=== PATIENT | male | born 1945 | race Caucasian/White ===

== ENCOUNTER 2017-01-13 15:23 | Inpatient (IN) | payer MEDICARE, MEDICAID ==
[~2017-01-13] VITALS: Ht 167.6 cm; Wt 86.2 kg
--- NOTE | 2017-01-13 15:35 | NUR ---
AAOX3, BIBRA FROM HOME C/O RIGHT GREAT TOE GANGRENE X 3 MONTHS. RESP IS EVEN AND UNLABORED WITH NAD NOTED. SKIN IS WARM AND DRY. AWAITING MD FOR EVAL.
--- NOTE | 2017-01-13 15:49 | NUR ---
CALLED NURSING SUP. FOR MS BED
[2017-01-13 16:07] LABS: BASOPHILS # (AUTO) 0.2 /CMM (0.0-0.2); EOSINOPHILS # (AUTO) 0.2 /CMM (0.0-0.7); HEMATOCRIT 41 % (39-51); HEMOGLOBIN 13.4 g/dL (13.5-17.5); LYMPHOCYTES # (AUTO) 1.9 /CMM (0.8-4.8); LYMPHOCYTES % (AUTO) 11.4 % (20.0-44.0); MEAN CORPUSCULAR HEMOGLOBIN 29 PG (26.0-33.0); MEAN CORPUSCULAR HGB CONC 33 g/dl (31.0-36.0); MEAN CORPUSCULAR VOLUME 88 fL (80-96); MONOCYTES # (AUTO) 1.1 /CMM (0.1-1.30); MONOCYTES % (AUTO) 6.5 % (2.0-12.0); NEUTROPHILS # (AUTO) 13.7 /CMM (1.8-8.9); NEUTROPHILS % (AUTO) 80.1 % (43.0-81.0); PLATELET COUNT (AUTO) 400 /CMM (150-450); RDW COEFFICIENT OF VARIATION 13.7 (11.5-15.0); RED BLOOD CELL COUNT(AUTO) 4.62 MIL/uL (4.5-6.0); WHITE BLOOD COUNT (AUTO) 17.1 K/uL (4.3-11.0)
[2017-01-13] MEDS ORDERED: ACETAMINOPHEN 325 MG TABLET ONE (16:16)
[2017-01-13 16:28] LABS: ALANINE AMINOTRANSFERASE 16 U/L (12-78); ALBUMIN 3.4 g/dL (3.4-5.0); ALKALINE PHOSPHATASE 86 U/L (46-116); ASPARTATE AMINOTRANSFERASE 20 U/L (15-37); BILIRUBIN,DIRECT 0.1 mg/dL (0.0-0.2); BILIRUBIN,TOTAL 0.6 mg/dL (0.2-1.0); CARBON DIOXIDE 22 mmol/L (21-32); CHLORIDE 105 mmol/L (98-107); CREATININE 1.7 mg/dL (0.6-1.3); GLUCOSE 111 mg/dL (74-106); POTASSIUM 3.8 mmol/L (3.5-5.1); SODIUM SERUM 140 mmol/L (136-145); TOTAL PROTEIN, SERUM 7.9 g/dL (6.4-8.2); UREA NITROGEN, BLOOD 49 mg/dL (7-18)
[2017-01-13] MEDS ORDERED: ACETAMINOPHEN 325 MG TABLET PO ONE (16:30)
[2017-01-13 16:32] LABS: INR 0.97 (0.87-1.13); PROTHROMBIN TIME 10.1 SECS (9.5-12.7)
--- NOTE | 2017-01-13 16:59 | NUR ---
[facility] PAGED, DR. XAVIER PAREDES PROFESSIONAL HOUSING CONSULTANT
[2017-01-13] MEDS ORDERED: VANCOMYCIN 1 GM in IV D5W 250 ML IV ONE (17:00)
--- NOTE | 2017-01-13 17:00 | NUR ---
MS 304-2
--- NOTE | 2017-01-13 17:10 | NUR ---
CALLED PHARMACY FOR ADDIS
[2017-01-13] MEDS: PIPERACILLIN /TAZOBACTAM 3.375 G in IV D5W 50 ML IV ONE ×2 (17:15→17:30)
[2017-01-13] MEDS ORDERED: ASPI1TAB PO (17:20)
[2017-01-13] MEDS ORDERED: IV SET PRIMARY PUMP SET 1 EA INFUS.SET MC ONE ×2 (17:20→22:58)
[2017-01-13] MEDS ORDERED: IV NS 0.9% 1,000 ML IV PRN (17:41)
--- NOTE | 2017-01-13 17:48 | NUR ---
REPORT GIVEN TO SKYLER MILLS FOR [facility] MS 304-2
[2017-01-13] MEDS ORDERED: ACETAMINOPHEN 325 MG TABLET PO PRN (18:00)
[2017-01-13] MEDS ORDERED: HYDROCODONE/APAP 5/325MG 1 EACH TABLET PO PRN (18:00)
[2017-01-13] MEDS ORDERED: ONDANSETRON HCL/PF 4 MG/2 ML VIAL IVP PRN (18:00)
[2017-01-13] MEDS ORDERED: MAG HYDROX/AL HYDROX/SIMETH 30 ML UDC PO PRN (18:00)
[2017-01-13] MEDS ORDERED: ZOLPIDEM TARTRATE 5 MG TABLET PO PRN (18:00)
[2017-01-13] MEDS ORDERED: Z GUARD REMEDY 2 OZ OINT TP PRN (18:00)
[2017-01-13] MEDS ORDERED: MORPHINE SULFATE INJ 2 MG/ML DISP.SYRIN IV PRN (18:00)
[2017-01-13] MEDS ORDERED: VANCOMYCIN 1 GM in IV D5W 250 ML IV SCH (18:00)
[2017-01-13] MEDS ORDERED: MAGNESIUM HYDROXIDE 30 ML UDC PO PRN (18:00)
[2017-01-13] MEDS ORDERED: FEE PK DOSING 1 MIN EA MC ONE (18:03)
--- NOTE | 2017-01-13 18:15 | NUR ---
PATIENT TRANSPORTED TO [place] VIA WHEELCHAIR. PATIENT REMAINS IN STABLE CONDITION AT THIS TIME.
[2017-01-13 18:22] VITALS: BP 97/52
--- NOTE | 2017-01-13 19:02 | NUR ---
patient from Er by 6:20pm .patient in stable condition.no respiratory distress noted.no pain nor discomfort noted from patient,vital signs taken and patient is resting comfortably .
[2017-01-13 20:00] VITALS: BP 98/49
[2017-01-13] MEDS ORDERED: IV NS 0.9% 250 ML IV ONE (22:58)
[2017-01-13] MEDS ORDERED: SECONDARY IV SET 1 EA INFUS.SET MC ONE (22:58)
[2017-01-13] MEDS: PIPERACILLIN /TAZOBACTAM 2.25 G in IV D5W 50 ML IV SCH (23:09)
[2017-01-14 04:00] VITALS: BP 106/60
[2017-01-14] MEDS: PIPERACILLIN /TAZOBACTAM 2.25 G in IV D5W 50 ML IV SCH ×2 (05:40→12:02)
[2017-01-14] MEDS ORDERED: SECONDARY IV SET 1 EA INFUS.SET MC ONE ×2 (05:52→09:47)
[2017-01-14] MEDS ORDERED: VANCOMYCIN 500 MG in IV D5W 100ml IV SCH (06:00)
[2017-01-14] MEDS ORDERED: VANCOMYCIN 0.5 GM in IV D5W 250 ML IV SCH (06:00)
--- NOTE | 2017-01-14 06:31 | NUR ---
MS RN NOTES AWAKE & RESPONSIVE. NOT IN ANY DISTRESS. NO SOB NOTED. DENIES ANY PAIN OR DISCOMFORT AT THIS TIME. WITH IV-HL PATENT & INTACT. MONITORED ACCORDINGLY. CALL LIGHT WITHIN REACH. BED IN LOWEST POSITION. SR UP X 2 FOR SAFETY. WILL ENDORSE TO NEXT SHIFT.
[2017-01-14 06:35] LABS: BASOPHILS % (AUTO) 0.3 % (0.0-2.0); EOSINOPHILS # (AUTO) 0.4 /CMM (0.0-0.7); EOSINOPHILS % (AUTO) 2.6 % (0.0-6.0); HEMATOCRIT 40 % (39-51); HEMOGLOBIN 13.3 g/dL (13.5-17.5); LYMPHOCYTES # (AUTO) 2.4 /CMM (0.8-4.8); LYMPHOCYTES % (AUTO) 17.3 % (20.0-44.0); MEAN CORPUSCULAR HEMOGLOBIN 30 PG (26.0-33.0); MEAN CORPUSCULAR HGB CONC 33 g/dl (31.0-36.0); MEAN CORPUSCULAR VOLUME 89 fL (80-96); MONOCYTES % (AUTO) 7.1 % (2.0-12.0); NEUTROPHILS % (AUTO) 72.7 % (43.0-81.0); PLATELET COUNT (AUTO) 364 /CMM (150-450); RDW COEFFICIENT OF VARIATION 14.5 (11.5-15.0); RED BLOOD CELL COUNT(AUTO) 4.49 MIL/uL (4.5-6.0); WHITE BLOOD COUNT (AUTO) 13.8 K/uL (4.3-11.0)
[2017-01-14 06:47] LABS: ALANINE AMINOTRANSFERASE 20 U/L (12-78); ALBUMIN 3.2 g/dL (3.4-5.0); ALKALINE PHOSPHATASE 88 U/L (46-116); ASPARTATE AMINOTRANSFERASE 20 U/L (15-37); BILIRUBIN,TOTAL 0.8 mg/dL (0.2-1.0); CALCIUM, SERUM 9.1 mg/dL (8.5-10.1); CARBON DIOXIDE 25 mmol/L (21-32); CHLORIDE 104 mmol/L (98-107); CREATININE 1.4 mg/dL (0.6-1.3); GLUCOSE 111 mg/dL (74-106); MAGNESIUM 1.7 mg/dL (1.8-2.4); PHOSPHORUS 3.2 mg/dL (2.5-4.9); POTASSIUM 3.7 mmol/L (3.5-5.1); SODIUM SERUM 140 mmol/L (136-145); TOTAL PROTEIN, SERUM 7.8 g/dL (6.4-8.2); UREA NITROGEN, BLOOD 39 mg/dL (7-18)
--- NOTE | 2017-01-14 07:25 | NUR ---
MS RN OPENING NOTES RECEIVED PATIENT IN BED AWAKE, ALERT AND ORIENTED X4, NO C/O PAIN OR DISCOMFORTS AT THIS TIME. ON ROOM AIR, BREATHING EVEN WITH NO SOB. IV ACCESS ON RAC G#18 INTACT AND PATENT. CALL LIGHT WITHIN REACH. BED IN LOWEST POSITION AND LOCKED WITH SR UP X 2. ALL SAFETY PRECAUTIONS MAINTAINED. WILL CONTINUE TO MONITOR ACCORDINGLY.
[2017-01-14] MEDS ORDERED: PANTOPRAZOLE 40 MG TABLET.DR PO SCH (07:30)
[2017-01-14] MEDS ORDERED: IV SET PRIMARY PUMP SET 1 EA INFUS.SET MC ONE (07:47)
[2017-01-14 08:00] VITALS: BP 132/76
[2017-01-14 09:34] LABS: THYROID STIMULATING HORMONE 0.579 uIU/mL (0.358-3.74)
[2017-01-14] MEDS: Magnesium 1GM/D5W 100ML PREMIX 100 ML IV SCH ×2 (09:48→11:04)
[2017-01-14] MEDS ORDERED: DEXTROSE 50%-WATER 50 ML DISP.SYRIN IV PRN (10:00)
[2017-01-14] MEDS ORDERED: *INSULIN REGULAR(HUMULIN R)HUM 100 UNIT/ML VIAL SQ PRN (10:00)
[2017-01-14] MEDS ORDERED: INSULIN REGULAR, HUMAN 100 UNIT/ML 3 ML VIAL SQ PRN (10:00)
--- NOTE | 2017-01-14 10:07 | NUR ---
RN NOTES PATIENT HOME HEALTH NURSE SARAN VALENCIA FROM [facility] CALLED INFORMED DAVID PT IS GETTING LANTUS 15U IN THE MORNING AND BYDUREON 2MG INJ EVERY WEDNESDAY. MADE AWARE AND ORDERS CARRIED OUT.
--- NOTE | 2017-01-14 10:40 | NUR ---
WOUND CARE CONSULT WOUND CARE RECEIVED WOUND CONSULT FOR PATIENT. WOUND CARE WILL DEFER EVAL AND TREATMENT TO PODIATRY AT THIS TIME WITH WOUND CARE ASSIST IF REQUESTED. PATIENT WITH OPAL AT 19, INDEPENDENT WITH BED MOBILITY AND AMBULATORY. DISCUSSED WITH NURSING STAFF.
[2017-01-14] MEDS ORDERED: BLOOD SUGAR DIAGNOSTIC 1 EACH STRIP VI SCH (12:00)
--- NOTE | 2017-01-14 12:03 | NUR ---
RN NOTES DR ALEXANDER CAME, SEEN AND EVALUATED PT'S LOWER EXTREMITIES AND FEET.
--- NOTE | 2017-01-14 13:37 | NUR ---
RN DISCHARGED NOTES PATIENT DISCHARGE HOME AGAINST MEDICAL ADVICE. AMA FORM SIGNED BY PATIENT AND FILED ON CHART. INCIDENT REPORT DONE. PATIENT LEFT UNIT AMBULATORY WITH WALKER ACCOMPANIED BY NURSE TO LOBBY WITH SON WAITING TO TAKE HIM HOME. HE LEFT UNIT AT 1510H ALERT AND ORIENTED X4, NO COMPLAINTS OF PAIN AT TIME OF DISCHARGE. VITAL SIGNS TAKEN AND RECORDED. BELONGINGS CHECKED, COUNTED AND SIGNED FORM. PNEUMO VACCINE GIVEN. PHOTO OF RIGHT GREAT TOE TAKEN ON ADMISSION LAST NIGHT AND FILED ON CHART. HEALTH TEACHINGS GIVEN TO PATIENT AND VERBALIZED UNDERSTANDING. MD AND CHARGE NURSE AWARE OF DISCHARGE.
[2017-01-14] MEDS ORDERED: PNEUMOCOCCAL 23-VAL P-SAC VAC 0.5 ML VIAL SQ ONE (14:30)
[2017-01-14] MEDS ORDERED: LACTOBACILLUS RHAMNOSUS GG 1 EACH CAP.SPRINK PO SCH (17:00)
[2017-01-14] MEDS ORDERED: VANCOMYCIN 0.75 GM in IV D5W 250 ML IV SCH (18:00)
[2017-01-15] MEDS ORDERED: INSULIN DETEMIR 100 UNIT/ML CARTRIDGE SQ SCH (09:00)
[2017-01-15 14:17] LABS: *SPE ALBUMIN 3.5 g/dL (2.9-4.4); *SPE ALPHA-1-GLOBULIN 0.3 g/dL (0.0-0.4); *SPE ALPHA-2-GLOBULIN 1.2 g/dL (0.4-1.0); *SPE BETA GLOBULIN 1.1 g/dL (0.7-1.3); *SPE GLOBULIN, TOTAL 3.4 g/dL (2.2-3.9); *SPE M-SPIKE Not Observed g/dL (Not Observed); *SPE PROTEIN TOTAL 6.9 g/dL (6.0-8.5); *SPEGAMMA GLOBULIN 0.8 g/dL (0.4-1.8)
[2017-01-19] MEDS ORDERED: BYDUREON 2 MG SQ SCH (09:00)
== END 2017-01-14 15:40 | disposition left against medical advice (07) | DRG 602 ==
LOC: ER 15:26 → MED 17:29
PROVIDERS: ADMIT Family Medicine; ATTEND Family Medicine
DX: L03.115 Cellulitis of right lower limb (principal); N17.0 Acute kidney failure with tubular necrosis; E11.52 Type 2 diabetes mellitus with diabetic peripheral angiopathy with gangrene; I70.261 Atherosclerosis of native arteries of extremities with gangrene, right leg; E11.22 Type 2 diabetes mellitus with diabetic chronic kidney disease; I12.9 Hypertensive chronic kidney disease with stage 1 through stage 4 chronic kidney disease, or unspecified chronic kidney disease; E66.9 Obesity, unspecified; Z68.30 Body mass index [BMI] 30.0-30.9, adult; D72.829 Elevated white blood cell count, unspecified; Z79.4 Long term (current) use of insulin; E83.42 Hypomagnesemia; N18.3 Chronic kidney disease, stage 3 (moderate)
CPT/HCPCS: 36415; 73630-TC; 80048-TC; 80053-TC; 80061-TC; 80076-TC; 82962-TC; 83605-TC; 83735-TC; 84100-TC; 84155; 84165; 84439-TC; 84443-TC; 85025-TC; 85652-TC; 85730-TC; 86140-TC; 87040-TC; 87081-TC; 90732; 93307-TC; 93925-TC; A4606; J1815; J2543; J3370; J3475; J7030; J7050; J7060; Z7610

== ENCOUNTER 2017-11-18 15:17 | Emergency (ER) | payer MEDICARE, OTHER ==
[~2017-11-18] VITALS: Ht 165.1 cm; Wt 83.9 kg
[2017-11-18 15:30] VITALS: BP 147/76
[2017-11-18] MEDS ORDERED: FAMOTIDINE (20 MG) 20 MG TABLET ONE (16:27)
[2017-11-18] MEDS ORDERED: DEXAMETHASONE SOD PHOSPHATE 10 MG/ML VIAL ONE (16:27)
[2017-11-18] MEDS: DEXAMETHASONE SOD PHOSPHATE 4 MG/ML VIAL IM ONE (16:33)
[2017-11-18] MEDS: FAMOTIDINE (20 MG) 20 MG TABLET PO ONE (16:33)
--- NOTE | 2017-11-18 17:25 | NUR ---
CALLED [facility] AND SPOKE WITH DISPATCHER CELIA TO ARRANGE A BLS TRANSPORT TO THE PTS RESIDENCE. WAS GIVEN A 1930 BRANCH CREDIT COUNSELOR TIME. TRIP #:[id number]
--- NOTE | 2017-11-18 19:35 | NUR ---
REPORT GIVEN TO EMT FOR CATERINA. PT VSS. PT AWARE OF TRANSFER BACK TO HOME. PT WITH ALL BELONGINGS. PT TO BE TRANSFERRED BACK HOME VIA GURNEY. PER AMBULJALIL TOOK OVER CARE.
== END 2017-11-18 16:56 | disposition home or self-care (01) ==
LOC: ER 15:20
DX: L30.9 Dermatitis, unspecified (principal); E11.9 Type 2 diabetes mellitus without complications; I10 Essential (primary) hypertension
CPT/HCPCS: 82962-TC; A4606; J1100; Z7610

== ENCOUNTER 2021-06-17 02:57 | Inpatient (IN) | payer MEDICARE, OTHER ==
[~2021-06-17] VITALS: Ht 182.9 cm; Wt 112.0 kg
[2021-06-17] VITALS (16 sets, daily range): BP systolic 78–139; BP diastolic 34–99
--- NOTE | 2021-06-17 03:11 | NUR ---
BIBRA FOR C/O SOB. PT ARRIVED ON CPAP SATTING 98-99%. A, OX4 AND RESPONSIVE ON TRIAGE. REPORTED HX OF DM, AND HTN. 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 PT WAS PLACED IN BED 8, ON MONITOR. , RN AND RT T BED SIDE. WILL CONT TO MONITOR
--- NOTE | 2021-06-17 03:15 | NUR ---
RT notes Pt placed on BIPAP on settings IPAP 15, EPAP 5, RR 16, FIO2 30% per MD order. Will cont to monitor.
[2021-06-17 03:22] LABS: BASOPHILS # (AUTO) 0.1 K/uL (0.0-0.2); BASOPHILS % (AUTO) 0.9 % (0.0-2.0); EOSINOPHILS % (AUTO) 1.9 % (0.0-6.0); HEMATOCRIT 36 % (39-51); HEMOGLOBIN 11.2 g/dL (13.5-17.5); LYMPHOCYTES # (AUTO) 2.3 K/uL (0.8-4.8); LYMPHOCYTES % (AUTO) 16.9 % (20.0-44.0); MEAN CORPUSCULAR HGB CONC 31 g/dl (31.0-36.0); MEAN CORPUSCULAR VOLUME 94 fL (80-96); MONOCYTES # (AUTO) 1.3 K/uL (0.1-1.30); MONOCYTES % (AUTO) 9.7 % (2.0-12.0); NEUTROPHILS # (AUTO) 9.7 K/uL (1.8-8.9); NEUTROPHILS % (AUTO) 70.6 % (43.0-81.0); PLATELET COUNT (AUTO) 343 K/uL (150-450); RED BLOOD CELL COUNT(AUTO) 3.81 MIL/uL (4.5-6.0); WHITE BLOOD COUNT (AUTO) 13.7 K/uL (4.3-11.0)
[2021-06-17] MEDS ORDERED: methylPREDNISolone SOD SUCC 125 MG/2ML VIAL IV ONE (03:30)
--- NOTE | 2021-06-17 03:30 | NUR ---
MRSA SWAB COLLECTED AND SENT TO LAB. PATIENT'S BELONGINGS LIST DONE.
[2021-06-17] MEDS ORDERED: methylPREDNISolone SOD SUCC 125 MG/2ML VIAL ONE (03:44)
[2021-06-17 03:47] LABS: ALANINE AMINOTRANSFERASE 27 U/L (12-78); ALKALINE PHOSPHATASE 131 U/L (46-116); ASPARTATE AMINOTRANSFERASE 22 U/L (15-37); BILIRUBIN,DIRECT 0.1 mg/dL (0.0-0.2); BILIRUBIN,TOTAL 0.2 mg/dL (0.2-1.0); CARBON DIOXIDE 29 mmol/L (21-32); CHLORIDE 102 mmol/L (98-107); CREATININE 2.8 mg/dL (0.6-1.3); POTASSIUM 5.1 mmol/L (3.5-5.1); SODIUM SERUM 138 mmol/L (136-145); TOTAL PROTEIN, SERUM 7.6 g/dL (6.4-8.2); UREA NITROGEN, BLOOD 66 mg/dL (7-18)
[2021-06-17 03:48] LABS: GLUCOSE 398 mg/dL (74-106)
[2021-06-17] MEDS ORDERED: FUROSEMIDE 20 MG/2 ML VIAL IV ONE (04:00)
[2021-06-17] MEDS ORDERED: FUROSEMIDE 40 MG/4 ML VIAL ONE (04:02)
[2021-06-17] MEDS ORDERED: CEFTRIAXONE 1 G in IV D5W 50 ML IV ONE (04:30)
[2021-06-17] MEDS ORDERED: CEFTRIAXONE 1GM BAG (ER ONLY) 50 ML IV ONE (04:32)
[2021-06-17] MEDS ORDERED: ACETAMINOPHEN 325 MG TABLET PO PRN (05:00)
[2021-06-17] MEDS ORDERED: Z GUARD REMEDY 2 OZ OINT TP PRN (05:00)
[2021-06-17] MEDS ORDERED: ONDANSETRON HCL/PF 4 MG/2 ML VIAL IVP PRN (05:00)
--- NOTE | 2021-06-17 05:09 | NUR ---
RESTING COMFORTABLY. VSS.
--- NOTE | 2021-06-17 05:11 | NUR ---
RECIEVED BED 253
[2021-06-17] MEDS ORDERED: INSULIN REGULAR, HUMAN 100 UNIT/ML 10 ML VIAL SQ ONE (05:30)
[2021-06-17] MEDS ORDERED: INSULIN REGULAR, HUMAN 100 UNIT/ML 10 ML VIAL ONE (05:53)
[2021-06-17] MEDS ORDERED: METO25TA4 PO (06:02)
[2021-06-17] MEDS ORDERED: INSU100V7 SQ ×2 (06:03→09:55)
--- NOTE | 2021-06-17 06:08 | NUR ---
REPORT GIVEN TO JUAN DIEGO HOLLAND FOR CATERINA
[2021-06-17 06:44] LABS: BAND % (MANUAL) 1 % (0.0-5.0); EOSINOPHILS % (MANUAL) 3 % (0-4); LYMPHOCYTES % (MANUAL) 13 % (16-48); METAMYELOCYTES % 1 % (0-0); MONOCYTES % (MANUAL) 9 % (0-11.0); MYELOCYTES % 2 % (0-0); NEUTROPHILS % (MANUAL) 71 (42-76)
--- NOTE | 2021-06-17 07:05 | NUR ---
PT TRANSFERED PER ACLS PROTOCOL
--- NOTE | 2021-06-17 07:09 | NUR ---
RN OPENING NOTE PATIENT ARRIVED FROM ED WITH SOB LAST FEW HOURS. 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 ADMITTING DX: CHF, ACUTE RESPIRATORY FAILURE. IV RIGHT HAND 20G, LEFT AC 18 G, BOTH FLUSH WELL. WILL PERFORM INITIAL PHYSICAL ASSESSMENT. ALL SAFETY MEASURE IN PLACE. BED ON LOWEST POSITION WITH HOB ELEVATED AND 3 SIDE RAIL UP. CALL LIGHT WITHIN REACH. WILL CONTINUE TO MONITOR.
[2021-06-17] MEDS ORDERED: INSULIN REGULAR, HUMAN 100 UNIT/ML 3 ML VIAL SQ PRN ×2 (08:00→11:00)
[2021-06-17] MEDS ORDERED: DEXTROSE 50%-WATER 50 ML DISP.SYRIN IV PRN ×2 (08:00→11:00)
[2021-06-17] MEDS ORDERED: FAMOTIDINE/PF INJ 20 MG/2 ML VIAL IV SCH (09:00)
[2021-06-17] MEDS ORDERED: HEPARIN SODIUM, PORCINE 5000 UNITS/1 ML VIAL SQ SCH (09:00)
[2021-06-17] MEDS ORDERED: SITA50TA PO (09:55)
[2021-06-17] MEDS ORDERED: INSU100V11 SQ (09:55)
[2021-06-17] MEDS ORDERED: IPRA3AMP23 IH (09:55)
[2021-06-17] MEDS ORDERED: TAMS-12 PO (09:55)
[2021-06-17] MEDS ORDERED: POTA10TA10 PO (09:55)
[2021-06-17] MEDS ORDERED: ENAL20TA18 PO (09:55)
[2021-06-17] MEDS ORDERED: GLIP5TAB13 PO (09:55)
[2021-06-17] MEDS ORDERED: BACL20TA PO (09:55)
[2021-06-17] MEDS ORDERED: ICOS1CAP PO (09:55)
[2021-06-17] MEDS ORDERED: CHOL100062 PO (09:55)
[2021-06-17] MEDS ORDERED: LOPE2CAP PO (09:55)
[2021-06-17] MEDS ORDERED: ACET-3478 PO (09:55)
[2021-06-17] MEDS ORDERED: CLOP75TA15 PO (09:55)
[2021-06-17] MEDS ORDERED: METO50TA16 PO (09:55)
[2021-06-17] MEDS ORDERED: FURO40TA5 PO (09:55)
[2021-06-17] MEDS ORDERED: TEMA15CA PO (09:55)
[2021-06-17] MEDS ORDERED: PREG-59 PO (09:55)
[2021-06-17] MEDS ORDERED: FINA5TAB11 PO (09:55)
[2021-06-17] MEDS ORDERED: ROSU10TA29 PO (09:55)
[2021-06-17] MEDS ORDERED: ASPI-1169 PO (09:55)
[2021-06-17] MEDS ORDERED: TEMAZEPAM 15 MG CAPSULE PO PRN (10:30)
[2021-06-17] MEDS ORDERED: LOPERAMIDE HCL (2 MG CAP) 2 MG CAPSULE PO PRN (10:30)
[2021-06-17 10:56] LABS: THYROID STIMULATING HORMONE 0.324 uIU/mL (0.358-3.74)
[2021-06-17] MEDS ORDERED: HEPARIN INFUSION/D5W 500 ML IV PRN (11:00)
[2021-06-17] MEDS: FUROSEMIDE 100 MG/10 ML VIAL IV SCH ×3 (11:29→18:25)
[2021-06-17] MEDS ORDERED: ALBUTEROL FS 2.5 MG/3 ML VIAL.NEB NEB PRN (11:30)
[2021-06-17] MEDS ORDERED: IPRATROPIUM NEB FS 0.5 MG/2.5 ML AMPUL.NEB NEB PRN (11:30)
[2021-06-17] MEDS ORDERED: BLOOD SUGAR DIAGNOSTIC 1 EACH STRIP IN SCH (12:00)
[2021-06-17] MEDS: BLOOD SUGAR DIAGNOSTIC 1 EACH STRIP IN SCH ×3 (12:04→22:10)
[2021-06-17] MEDS: *INSULIN REGULAR(HUMULIN R)HUM 100 UNIT/ML VIAL SQ PRN ×2 (12:06→21:45)
[2021-06-17] MEDS: methylPREDNISolone SOD SUCC 40 MG/ML VIAL IV SCH ×2 (14:16→21:04)
[2021-06-17] MEDS ORDERED: PREGABALIN 100 MG CAPSULE PO SCH (17:00)
[2021-06-17] MEDS ORDERED: METOPROLOL TARTRATE 50 MG TABLET PO SCH (17:00)
[2021-06-17] MEDS ORDERED: BACLOFEN (10 MG) 10 MG TABLET PO SCH (17:00)
--- NOTE | 2021-06-17 18:40 | NUR ---
RN NOTE REPORT WAS GIVEN TO ICU NURSE. PATIENT IN STABLE CONDITION WITH NO SIGN OF DISTRESS AT TIME OF REPORT. PATIENT IS A/O X4. INDEPENDENT WITH REPOSITIONING IN BED. HEPARIN DRIP WAS STARTED AT 1200UNITS/HR. ALL SCHEDULE MEDICATIONS WAS GIVEN.
--- NOTE | 2021-06-17 19:05 | NUR ---
RECEIVED PT ON BED AWAKE AAOX4 TELUGU SPEAKING, CAN UNDERSTAND AND SPEAK LITTLE HEBREW, ON O2 4L VIA NC SPO2 97% NO SIGN OF RESPIRATORY DISTRESS, TELE MONITOR READS SINUS RHYTHM 80'S, HAVE RFA # 20 IV WITH ONGOING HEPARIN DRIP @ 1200 UNITS/HR, HAVE ALSO LAC#18 PATENT AND FLUSHED, PT IS IS R BKA WITH PROSTHETIC LEGS ON PLACE BED ON LOWEST POSITION AND LOCKED SIDE RAILS UP X2 CALL LIGHT WITHIN REACH WILL CONT TO MONITOR
--- NOTE | 2021-06-17 21:05 | NUR ---
REPORTED TO ONCALL DR NAVIN NEWBERRY THAT PT BLOOD SUGAR IS 578 WITH ORDER TO INCREASE LANTUS TO 20 UNITS QHS NOTED AND CARRIED OUT
--- NOTE | 2021-06-17 21:36 | NUR ---
PT WANTS ARTERIAL DPLR LOWER EXT BILATERAL EXAM DONE TOMORROW. INFORMED RN CHEN.
--- NOTE | 2021-06-17 21:50 | NUR ---
PT BECOME AGITATED AND WANT TO GO HOME EXPLAIN RISK AND BENEFITS OF HIS DECISION AND ALSO SAID THAT THE DOCTOR WILL NOT DISCHARGE HIM THIS TIME AND KEEP INSISTING TO GO HOME HE EVEN REMOVE ALL HIS IV LINE AND THE MONITOR THAT IS CONNECTED TO HIM, HE SAID HE WILL SIGN ANY PAPER JUST TO GO HOME, WE CALLED THE SON ELTON AND EXPLAIN TO HIM THE SITUATION, AND HIS FATHER IS SO ADAMANT TO GO HOME AND WILL SIGN AMA PAPER, MS CA BOOTH ALSO TALK TO PATIENT AND TO THE SON AND THE SON IS WILLING TO ASSURANCE SENIOR HIS DAD IN THE HOSPITAL, AMA FORMED WAS SIGN BELONGINGS WAS SIGN AND WITH THE PT, V/S CHECKED AND RECORDED, PT IS 96% ON ROOM AIR NO SIGNED OF RESPIRATORY DISTRESS, WHEELCHAIRED TO LOBBY
[2021-06-17] MEDS ORDERED: ATORVASTATIN 40 MG TABLET PO SCH (22:00)
[2021-06-17] MEDS ORDERED: INSULIN GLARGINE, 100 UNIT/ML CARTRIDGE SQ SCH (22:00)
[2021-06-18] MEDS ORDERED: CEFTRIAXONE 1 G in IV D5W 50 ML IV SCH (04:00)
[2021-06-18] MEDS ORDERED: CEFTRIAXONE 2 G in IV D5W 100 ML IV SCH (05:00)
[2021-06-18] MEDS ORDERED: FINASTERIDE (5 MG) 5 MG TABLET PO SCH (09:00)
[2021-06-18] MEDS ORDERED: ASPIRIN 81 MG TAB.CHEW PO SCH (09:00)
[2021-06-18] MEDS ORDERED: CHOLECALCIFEROL 1,000 UNIT TABLET (VIT D3) PO SCH (09:00)
[2021-06-18] MEDS ORDERED: CLOPIDOGREL BISULFATE 75 MG TABLET PO SCH (09:00)
[2021-06-18] MEDS ORDERED: TAMSULOSIN 0.4 MG CAP.SR.24H PO SCH (09:00)
== END 2021-06-17 21:56 | disposition left against medical advice (07) | DRG 280 ==
LOC: ER 03:07 → ICU 06:22
PROVIDERS: ADMIT Student in an Organized Health Care Education/Training Program; ATTEND Student in an Organized Health Care Education/Training Program
DX: I13.0 Hypertensive heart and chronic kidney disease with heart failure and stage 1 through stage 4 chronic kidney disease, or unspecified chronic kidney disease (principal); J96.21 Acute and chronic respiratory failure with hypoxia; I21.4 Non-ST elevation (NSTEMI) myocardial infarction; N17.0 Acute kidney failure with tubular necrosis; I50.31 Acute diastolic (congestive) heart failure; Z20.822 Contact with and (suspected) exposure to COVID-19; D64.9 Anemia, unspecified; Z87.891 Personal history of nicotine dependence; J44.9 Chronic obstructive pulmonary disease, unspecified; N18.9 Chronic kidney disease, unspecified; Z79.4 Long term (current) use of insulin; E11.22 Type 2 diabetes mellitus with diabetic chronic kidney disease; E11.51 Type 2 diabetes mellitus with diabetic peripheral angiopathy without gangrene; Z89.511 Acquired absence of right leg below knee; G47.33 Obstructive sleep apnea (adult) (pediatric); Z68.33 Body mass index [BMI] 33.0-33.9, adult
CPT/HCPCS: 36415; 71045-TC; 76770-TC; 80048-TC; 80061-TC; 80076-TC; 82962-TC; 83605-TC; 83880; 84439-TC; 84443-TC; 84484-TC; 85025-TC; 85730-TC; 87040-TC; 87081-TC; 93307-TC; C9803; G0378; J0696; J1644; J1815; J1940; J2920; J2930; J3490; J7060

== ENCOUNTER 2021-06-27 04:38 | Inpatient (IN) | payer MEDICARE, OTHER ==
[~2021-06-27] VITALS: Ht 167.6 cm; Wt 109.3 kg
[2021-06-27] VITALS (15 sets, daily range): BP systolic 86–135; BP diastolic 41–68
[~2021-06-27 04:38] MED LIST: ACET-3478 PO; ASPI-1169 PO; BACL20TA PO; CHOL100062 PO; CLOP75TA15 PO; ENAL20TA18 PO; FINA5TAB11 PO; FURO40TA5 PO; GLIP5TAB13 PO; ICOS1CAP PO; INSU100V11 SQ; INSU100V7 SQ; IPRA3AMP23 IH; LOPE2CAP PO; METO50TA16 PO; POTA10TA10 PO; PREG-59 PO; ROSU10TA29 PO; SITA50TA PO; TAMS-12 PO; TEMA15CA PO
--- NOTE | 2021-06-27 04:49 | NUR ---
PT BIBRA60 FROM HOME C/O OF SOB. WHEN EMS ARRIVED O2 SATS WERE IN THE 80S. PRIOR TO ARRIVAL PATIENT RECIEVED 3 NITRO, ALBUTEROL AND WAS PLACED ON CPAP. PATIENT STATES HE IS "FEELING ALOT BETTER NOW" PER EMS. PATIENT ALERT AND ORIETNED X3.
--- NOTE | 2021-06-27 04:51 | NUR ---
TOLL TICKET CLERK @ BEDSIDE
--- NOTE | 2021-06-27 04:55 | NUR ---
COVID SWAB COLLECTED AND SENT TO LAB
--- NOTE | 2021-06-27 04:58 | NUR ---
RT pt received on pm cpap. placed on bipap per md order. settings 20/5 R 16 80%. diminished lung sounds throughout. pt tolerating bipap settings at this time. ambu bag at bedside. will continue to monitor.
[2021-06-27 05:12] LABS: BASOPHILS # (AUTO) 0.1 K/uL (0.0-0.2); BASOPHILS % (AUTO) 0.4 % (0.0-2.0); EOSINOPHILS % (AUTO) 0.6 % (0.0-6.0); HEMATOCRIT 36 % (39-51); HEMOGLOBIN 10.9 g/dL (13.5-17.5); LYMPHOCYTES # (AUTO) 1.3 K/uL (0.8-4.8); LYMPHOCYTES % (AUTO) 10.6 % (20.0-44.0); MEAN CORPUSCULAR HGB CONC 30 g/dl (31.0-36.0); MEAN CORPUSCULAR VOLUME 95 fL (80-96); MONOCYTES # (AUTO) 0.9 K/uL (0.1-1.30); MONOCYTES % (AUTO) 6.9 % (2.0-12.0); NEUTROPHILS # (AUTO) 10.3 K/uL (1.8-8.9); NEUTROPHILS % (AUTO) 81.5 % (43.0-81.0); PLATELET COUNT (AUTO) 324 K/uL (150-450); RED BLOOD CELL COUNT(AUTO) 3.79 MIL/uL (4.5-6.0); WHITE BLOOD COUNT (AUTO) 12.6 K/uL (4.3-11.0)
--- NOTE | 2021-06-27 05:15 | NUR ---
ASK PT FOR URINE SAMPLE. PT UNABLE TO URINATE AT THIS TIME.
[2021-06-27 05:37] LABS: ALANINE AMINOTRANSFERASE 24 U/L (12-78); ALBUMIN 3.1 g/dL (3.4-5.0); ALKALINE PHOSPHATASE 116 U/L (46-116); ASPARTATE AMINOTRANSFERASE 22 U/L (15-37); BILIRUBIN,DIRECT 0.1 mg/dL (0.0-0.2); BILIRUBIN,TOTAL 0.3 mg/dL (0.2-1.0); CALCIUM, SERUM 8.5 mg/dL (8.5-10.1); CARBON DIOXIDE 27 mmol/L (21-32); CHLORIDE 99 mmol/L (98-107); TOTAL PROTEIN, SERUM 7.6 g/dL (6.4-8.2)
[2021-06-27 05:39] LABS: CREATININE 2.1 mg/dL (0.6-1.3); GLUCOSE 547 mg/dL (74-106); POTASSIUM 6.3 mmol/L (3.5-5.1); SODIUM SERUM 135 mmol/L (136-145); UREA NITROGEN, BLOOD 39 mg/dL (7-18)
--- NOTE | 2021-06-27 05:47 | NUR ---
EPIC PANEL PAGED
[2021-06-27] MEDS ORDERED: FUROSEMIDE 40 MG TABLET PO SCH (06:00)
[2021-06-27] MEDS ORDERED: MORPHINE SULFATE INJ 2 MG/ML DISP.SYRIN IV PRN (06:00)
[2021-06-27] MEDS ORDERED: DEXTROSE 50%-WATER 50 ML DISP.SYRIN IV ONE (06:00)
[2021-06-27] MEDS ORDERED: FUROSEMIDE 40 MG/4 ML VIAL IV ONE (06:00)
[2021-06-27] MEDS ORDERED: LABETALOL 20 MG/4 ML VIAL IV PRN (06:00)
[2021-06-27] MEDS ORDERED: VANCOMYCIN 1 GM in IV D5W 250 ML IV ONE ×2 (06:00→12:00)
[2021-06-27] MEDS ORDERED: DEXTROSE 50%-WATER 50 ML DISP.SYRIN IV PRN (06:00)
[2021-06-27] MEDS ORDERED: PIPERACILLIN /TAZOBACTAM 3.375 G in IV D5W 50 ML IV ONE (06:00)
[2021-06-27] MEDS ORDERED: ALBUTEROL FS 2.5 MG/3 ML VIAL.NEB NEB ONE (06:00)
[2021-06-27] MEDS ORDERED: SODIUM BICARBONATE SYR 50 MEQ/50 ML DISP.SYRIN IV ONE (06:00)
[2021-06-27] MEDS ORDERED: INSULIN REGULAR, HUMAN 100 UNIT/ML 10 ML VIAL IV ONE (06:00)
[2021-06-27] MEDS ORDERED: hydrALAZINE HCL IV 20 MG VIAL IV PRN (06:00)
[2021-06-27] MEDS ORDERED: ONDANSETRON HCL/PF 4 MG/2 ML VIAL IVP PRN (06:00)
[2021-06-27] MEDS ORDERED: ASPIRIN 325 MG TABLET PO ONE (06:00)
[2021-06-27] MEDS ORDERED: SODIUM POLYSTYRENE SULFONATE 15 G/60 ML BOTTLE PO ONE (06:00)
[2021-06-27] MEDS ORDERED: CALCIUM CHLORIDE 1,000 MG/10 ML DISP.SYRIN IV ONE (06:00)
[2021-06-27] MEDS ORDERED: VANCOMYCIN 1 GM VIAL ONE (06:12)
[2021-06-27] MEDS ORDERED: FUROSEMIDE 20 MG/2 ML VIAL ONE (06:12)
[2021-06-27] MEDS ORDERED: SODIUM POLYSTYRENE SULFONATE 15 G/60 ML BOTTLE ONE (06:12)
[2021-06-27] MEDS ORDERED: PIPERACILLIN /TAZOBACTAM 3.375 G VIAL IV ONE (06:12)
[2021-06-27] MEDS ORDERED: SODIUM BICARBONATE SYR 50 MEQ/50 ML DISP.SYRIN ONE (06:13)
[2021-06-27] MEDS ORDERED: DEXTROSE 50%-WATER 50 ML DISP.SYRIN ONE (06:13)
[2021-06-27] MEDS ORDERED: ASPIRIN 325 MG TABLET ONE (06:13)
[2021-06-27] MEDS ORDERED: INSULIN REGULAR, HUMAN 100 UNIT/ML 10 ML VIAL ONE (06:13)
[2021-06-27] MEDS ORDERED: CALCIUM CHLORIDE 1,000 MG/10 ML DISP.SYRIN ONE (06:13)
[2021-06-27 06:14] LABS: ABG BASE EXCESS -0.8 mmol/L; ABG PH 7.327 (7.350-7.450); ABG PO2 357.3 mmHg (75.0-100.0); COHb 0.3 % (0.5-1.5); MetHb 0.4 % (0.0-1.5); O2Hb 98.8 % (94.0-97.0); SITE, ABG Right Radial; VENT MODE, BG ST 20/5 R16 80%
--- NOTE | 2021-06-27 06:19 | NUR ---
CLARIFIED WITH DR. DEE ABOUT ROOM ASSIGNMENT. PT NEED TO GO TO ICU D/T RESCUE BIPAP USE. ABG RESULT ALOS RELAYED TO MD AND RECEIVED AND ORDER TO DO ANOTHER ABG AT 0700. IF PCO2IS LESS THAN 50, DISCONTINUE BIPAP USE
--- NOTE | 2021-06-27 06:19 | NUR ---
DR. DEE OK TO ADMIT PT TO ICU
--- NOTE | 2021-06-27 06:29 | NUR ---
RT MADE AWARE OF [facility] ORDER @ 7691
[2021-06-27] MEDS ORDERED: FUROSEMIDE 40 MG/4 ML VIAL IV SCH (06:30)
[2021-06-27 06:54] LABS: ABG BASE EXCESS 0.8 mmol/L; ABG PCO2 52.1 mmHg (35.0-45.0); ABG PH 7.336 (7.350-7.450); ABG PO2 117.3 mmHg (75.0-100.0); COHb 0.3 % (0.5-1.5); MetHb 0.3 % (0.0-1.5); O2Hb 97.8 % (94.0-97.0); SITE, ABG Left Radial
--- NOTE | 2021-06-27 06:59 | NUR ---
ROOM 255 FOR AFTER CHANGE OF SHIFT
--- NOTE | 2021-06-27 07:03 | NUR ---
PATIENT TAKEN TO CT
--- NOTE | 2021-06-27 07:10 | NUR ---
RELAYED ABG RESULT TO DR. DEE
--- NOTE | 2021-06-27 07:31 | NUR ---
REPORT GIVEN TO SKYLER PAREKH
[2021-06-27 07:45] LABS: ALANINE AMINOTRANSFERASE 23 U/L (12-78); ALBUMIN 2.7 g/dL (3.4-5.0); ALKALINE PHOSPHATASE 97 U/L (46-116); ASPARTATE AMINOTRANSFERASE 37 U/L (15-37); BILIRUBIN,TOTAL 0.3 mg/dL (0.2-1.0); CALCIUM, SERUM 8.4 mg/dL (8.5-10.1); CARBON DIOXIDE 26 mmol/L (21-32); CHLORIDE 100 mmol/L (98-107); CREATININE 1.9 mg/dL (0.6-1.3); SODIUM SERUM 134 mmol/L (136-145); TOTAL PROTEIN, SERUM 6.5 g/dL (6.4-8.2); UREA NITROGEN, BLOOD 40 mg/dL (7-18)
[2021-06-27] MEDS ORDERED: VANCOMYCIN 500 MG in IV D5W 100 ML IV ONE (08:00)
[2021-06-27 08:06] LABS: GLUCOSE 705 mg/dL (74-106)
--- NOTE | 2021-06-27 08:45 | NUR ---
ICU/RN PT IS ADMITTED FROM ER ,DUE TO SOB,NSTEMI .OFF BI-PAP.ON 2L N/C ,SAT O2-100%.V/S STABLE ,AFEBRILE.NO PAIN REPORTED AT THIS TIME. PT IS AWAKE ,ALERT.CROATIAN AND CHINESE SPEAKING.IV -HL.RIGHT BKA,HAS PROTHESIS.SKIN INTACT.PLACED ON MONITOR.NORMAL SINUS RHYTHM. LABS REVIEW.MD AWARE.
[2021-06-27] MEDS: ASPIRIN 81 MG TAB.CHEW PO SCH (09:00)
[2021-06-27] MEDS ORDERED: METOPROLOL TARTRATE 50 MG TABLET PO SCH (09:00)
[2021-06-27] MEDS: FINASTERIDE (5 MG) 5 MG TABLET PO SCH (09:16)
[2021-06-27] MEDS: TAMSULOSIN 0.4 MG CAP.SR.24H PO SCH (09:16)
[2021-06-27] MEDS: LINAGLIPTIN 5 MG TABLET PO SCH (09:16)
[2021-06-27] MEDS: FUROSEMIDE 100 MG/10 ML VIAL IV SCH ×3 (09:16→15:16)
[2021-06-27] MEDS: ATORVASTATIN 10 MG TABLET PO SCH (09:16)
[2021-06-27] MEDS: PREGABALIN 100 MG CAPSULE PO SCH ×2 (09:16→16:18)
[2021-06-27] MEDS: CHOLECALCIFEROL 1,000 UNIT TABLET (VIT D3) PO SCH (09:16)
[2021-06-27] MEDS: CLOPIDOGREL BISULFATE 75 MG TABLET PO SCH (09:16)
[2021-06-27] MEDS: INSULIN GLARGINE, 100 UNIT/ML CARTRIDGE SQ SCH ×2 (09:18→18:01)
[2021-06-27] MEDS: INSULIN REGULAR, HUMAN 100 UNIT/ML 3 ML VIAL SQ PRN ×2 (09:18→12:16)
[2021-06-27] MEDS: BLOOD SUGAR DIAGNOSTIC 1 EACH STRIP VI SCH ×4 (09:19→22:09)
[2021-06-27 09:26] LABS: BILIRUBIN,URINE NEGATIVE (NEGATIVE); COLOR,URINE YELLOW (YELLOW); LEUKOCYTE ESTERASE ,URINE TRACE (NEGATIVE); NITRITE, URINE POSITIVE (NEGATIVE); PH,URINE 5.5 (5.0-8.0); PROTEIN,URINE NEGATIVE (NEGATIVE); UGLUCOSE >=1000 mg/dL (NEGATIVE); UROBILINOGEN,URINE 0.2 EU/dL (0.2)
--- NOTE | 2021-06-27 09:35 | NUR ---
ICU/RN DUE MEDS ARE GIVEN ORDERED.MIDLINE INSERTED ON RIGHT AND LEFT UPPER ARMS.
[2021-06-27 09:49] LABS: BACTERIA,URINE Many /HPF (None Seen); SQUAMOUS EPITHELIAL CELL,UR Rare /HPF (None Seen)
[2021-06-27] MEDS: HEPARIN INFUSION/D5W 500 ML IV PRN (10:53)
--- NOTE | 2021-06-27 11:00 | NUR ---
ICU/RN HEPARIN DRIP STARTED ORDERED. LASIX 80 MG IV GIVEN ORDERED.PT URINATED 650 ML.
[2021-06-27] MEDS: CEFEPIME 2 GM in IV D5W 100 ML IV SCH (11:07)
[2021-06-27] MEDS: POTASSIUM CHLORIDE 10 MEQ TABLET.SA PO SCH (16:15)
[2021-06-27] MEDS ORDERED: VANCOMYCIN 1 GM in IV D5W 250 ML IV SCH (17:00)
--- NOTE | 2021-06-27 18:00 | NUR ---
ICU/RN PT EATS 100% FROM HIS MEAL TRAY. DUE MEDS ARE GIVEN ORDERED.BS-129. PTT-37.7.HEPARIN DRIP INCREASED TO 1400 UNITS/HR.CONTINUE MONITORING.
[2021-06-27] MEDS: *INSULIN REGULAR(HUMULIN R)HUM 100 UNIT/ML VIAL SQ PRN (22:14)
[2021-06-28] VITALS (23 sets, daily range): BP systolic 84–138; BP diastolic 45–70
[2021-06-28] MEDS: TEMAZEPAM 15 MG CAPSULE PO PRN (00:34)
[2021-06-28] MEDS: HEPARIN INFUSION/D5W 500 ML IV PRN ×2 (04:06→22:40)
[2021-06-28 05:24] LABS: BASOPHILS % (AUTO) 0.4 % (0.0-2.0); EOSINOPHILS % (AUTO) 3.9 % (0.0-6.0); HEMATOCRIT 29 % (39-51); HEMOGLOBIN 9.5 g/dL (13.5-17.5); MEAN CORPUSCULAR HGB CONC 33 g/dl (31.0-36.0); MEAN CORPUSCULAR VOLUME 91 fL (80-96); MONOCYTES % (AUTO) 9.4 % (2.0-12.0); NEUTROPHILS % (AUTO) 67.3 % (43.0-81.0); PLATELET COUNT (AUTO) 251 K/uL (150-450); RED BLOOD CELL COUNT(AUTO) 3.22 MIL/uL (4.5-6.0); WHITE BLOOD COUNT (AUTO) 10.4 K/uL (4.3-11.0)
[2021-06-28 05:36] LABS: ALANINE AMINOTRANSFERASE 27 U/L (12-78); ALBUMIN 2.6 g/dL (3.4-5.0); ALKALINE PHOSPHATASE 86 U/L (46-116); ASPARTATE AMINOTRANSFERASE 46 U/L (15-37); BILIRUBIN,TOTAL 0.4 mg/dL (0.2-1.0); CALCIUM, SERUM 8.1 mg/dL (8.5-10.1); CARBON DIOXIDE 33 mmol/L (21-32); CHLORIDE 101 mmol/L (98-107); CREATININE 2.1 mg/dL (0.6-1.3); GLUCOSE 175 mg/dL (74-106); MAGNESIUM 1.8 mg/dL (1.8-2.4); PHOSPHORUS 4.2 mg/dL (2.5-4.9); POTASSIUM 4.3 mmol/L (3.5-5.1); SODIUM SERUM 138 mmol/L (136-145); TOTAL PROTEIN, SERUM 6.4 g/dL (6.4-8.2); UREA NITROGEN, BLOOD 43 mg/dL (7-18)
--- NOTE | 2021-06-28 05:51 | NUR ---
ICU/RN: CRITICAL TROP 8.[address] DEE. NO NEW ORDERS.
[2021-06-28] MEDS ORDERED: CEFEPIME 1 GM in IV D5W 50 ML IV SCH (06:00)
[2021-06-28] MEDS ORDERED: BUMETANIDE INJ 16 MG in IV NS 0.9% 16 ML IV ONE (08:00)
--- NOTE | 2021-06-28 08:00 | NUR ---
ICU/RN PT IS RESTING IN THE BED ON ROOM AIR,SAT O2-100%. NO SOB .V/S STABLE,AFEBRILE.NO PAIN REPORTED AT THIS TIME.ON HEPARIN DRIP .AWAKE,ALERT,ORIENTED-4.LABS REVIEW. AWARE.
[2021-06-28] MEDS: BLOOD SUGAR DIAGNOSTIC 1 EACH STRIP VI SCH ×4 (08:13→21:54)
[2021-06-28] MEDS: FINASTERIDE (5 MG) 5 MG TABLET PO SCH (08:14)
[2021-06-28] MEDS: PREGABALIN 100 MG CAPSULE PO SCH ×2 (08:14→16:50)
[2021-06-28] MEDS: ATORVASTATIN 10 MG TABLET PO SCH (08:14)
[2021-06-28] MEDS: CLOPIDOGREL BISULFATE 75 MG TABLET PO SCH (08:14)
[2021-06-28] MEDS: CHOLECALCIFEROL 1,000 UNIT TABLET (VIT D3) PO SCH (08:14)
[2021-06-28] MEDS: TAMSULOSIN 0.4 MG CAP.SR.24H PO SCH (08:14)
[2021-06-28] MEDS: ASPIRIN 81 MG TAB.CHEW PO SCH (08:14)
[2021-06-28] MEDS: POTASSIUM CHLORIDE 10 MEQ TABLET.SA PO SCH ×2 (08:14→16:50)
[2021-06-28] MEDS: LINAGLIPTIN 5 MG TABLET PO SCH (08:14)
[2021-06-28] MEDS: INSULIN GLARGINE, 100 UNIT/ML CARTRIDGE SQ SCH ×2 (08:18→17:11)
[2021-06-28] MEDS: INSULIN REGULAR, HUMAN 100 UNIT/ML 3 ML VIAL SQ PRN ×3 (08:59→17:12)
--- NOTE | 2021-06-28 09:00 | NUR ---
ICU/RN DUE MEDS ARE GIVEN ORDERED.PT EATS 100% FROM HIS MEAL TRAY.ON BUMEX DRIP NOW.CONTINUE MONITORING.
[2021-06-28] MEDS: CEFEPIME 2 GM in IV D5W 100 ML IV SCH (10:54)
--- NOTE | 2021-06-28 18:06 | NUR ---
ICU/RN PT EATS 100% FROM HIS MEAL TRAY.DUE MEDS ARE GIVEN ORDERED.STILL ON HEPARIN DRIP.V.S STABLE AFEBRILE.NO PAIN REPORTED AT THIS TIME.OK TO TRANSFER TO TELE UNIT.
--- NOTE | 2021-06-28 19:11 | NUR ---
ICU/RN PT TRANSFER TO TELE UNIT IN STABLE CONDITION.REPORT GIVEN TO EVE/SKYLER
--- NOTE | 2021-06-28 19:30 | NUR ---
RN NOTES RECEIVED PT FOR CONTINUITY OF CARE. PATIENT A/OX4 IN NO S/SX OF ACUTE DISTRESS AT THIS TIME; CURRENTLY ON ROOM AIR; WITH 02 SAT >95% AT THIS TIME. PT HAS A RUNNING HEPARIN DRIP @1400UNITS/HR PER [facility] PROTOCOL ORDERED. ALL LINES PATENT, SECURED AND FLUSHING WELL . WILL ENSURE SAFETY MEASURES WITHIN THE SHIFT. PATIENT BED ALARM IS ON. HEAD OF BED ELEVATED. BED IS LOCKED, IN LOWEST POSITION AND SIDE RAILS UP. CALL LIGHT WITHIN REACH OF THE PATIENT. APPLICABLE ISOLATION PRECAUTIONS IN PLACE. WILL CONTINUE TO MONITOR AND REASSESS FOR ANY CHANGES AND WILL CARRY OUT ANY ONGOING AND ACTIVE MD ORDER.
[2021-06-28] MEDS: *INSULIN REGULAR(HUMULIN R)HUM 100 UNIT/ML VIAL SQ PRN (21:56)
[2021-06-28] MEDS ORDERED: VANCOMYCIN 1.25 GM in IV D5W 250 ML IV SCH (23:00)
[2021-06-29] VITALS: BP 115/59
--- NOTE | 2021-06-29 | NUR ---
RN NOTES PATIENT REMAINED TO BE IN NO SIGNS OF ACUTE RESPIRATORY DISTRESS , VITAL SIGNS WNL AT THIS TIME. ODD PIECE CHECKER WELL AWARE. WILL CONTINUE TO MONITOR AND REASSESS FOR ANY CHANGES THROUGHOUT THE SHIFT.
[2021-06-29 04:00] VITALS: BP 114/75
--- NOTE | 2021-06-29 04:00 | NUR ---
RN NOTES NO NOTED CHANGES IN PATIENT CONDITION AT THIS TIME; PATIENT VITALS STABLE, NO SIGNS OF ACUTE RESPIRATORY DISTRESS. AM PATIENT CARE RENDERED.WILL CONTINUE TO MONITOR AND REASSESS FOR ANY CHANGES THROUGHOUT THE SHIFT.
--- NOTE | 2021-06-29 06:00 | NUR ---
RN NOTES PTT CAME OUT 52.4 PER HEPARIN DRIP FOLLOWING [facility] PROTOCOL UNDER >95KG APTT BETWEEN 46-70: NO CHANGE. REPEAT APTT KALEY AM. WEB MASTER MADE AWARE.
[2021-06-29 06:15] LABS: BASOPHILS % (AUTO) 0.5 % (0.0-2.0); EOSINOPHILS % (AUTO) 3.5 % (0.0-6.0); HEMATOCRIT 31 % (39-51); HEMOGLOBIN 10.3 g/dL (13.5-17.5); LYMPHOCYTES # (AUTO) 2.3 K/uL (0.8-4.8); LYMPHOCYTES % (AUTO) 22.1 % (20.0-44.0); MEAN CORPUSCULAR HGB CONC 33 g/dl (31.0-36.0); MEAN CORPUSCULAR VOLUME 90 fL (80-96); MONOCYTES # (AUTO) 1.1 K/uL (0.1-1.30); MONOCYTES % (AUTO) 10.3 % (2.0-12.0); NEUTROPHILS # (AUTO) 6.6 K/uL (1.8-8.9); NEUTROPHILS % (AUTO) 63.6 % (43.0-81.0); PLATELET COUNT (AUTO) 282 K/uL (150-450); RED BLOOD CELL COUNT(AUTO) 3.48 MIL/uL (4.5-6.0); WHITE BLOOD COUNT (AUTO) 10.4 K/uL (4.3-11.0)
[2021-06-29 06:50] LABS: ALANINE AMINOTRANSFERASE 21 U/L (12-78); ALBUMIN 2.8 g/dL (3.4-5.0); ALKALINE PHOSPHATASE 95 U/L (46-116); ASPARTATE AMINOTRANSFERASE 28 U/L (15-37); BILIRUBIN,TOTAL 0.5 mg/dL (0.2-1.0); CALCIUM, SERUM 8.4 mg/dL (8.5-10.1); CARBON DIOXIDE 34 mmol/L (21-32); CHLORIDE 96 mmol/L (98-107); CREATININE 2.3 mg/dL (0.6-1.3); GLUCOSE 215 mg/dL (74-106); MAGNESIUM 1.7 mg/dL (1.8-2.4); POTASSIUM 4.3 mmol/L (3.5-5.1); SODIUM SERUM 135 mmol/L (136-145); UREA NITROGEN, BLOOD 50 mg/dL (7-18)
--- NOTE | 2021-06-29 07:00 | NUR ---
RN CLOSING NOTE: PATIENT REMAINS IN ROOM IN NO SIGNS OF RESPIRATORY DISTRESS, PATIENT STILL ON ROOM AIR;TOLERATING WELL SATURATING @ >95% SP02. STILL ON HEPARIN DRIP @1400U/HR (NO CHANGE BASED ON THE LAST APTT RESULT. SAFETY MEASURES IMPLEMENTED, BED IN LOWEST POSITION, LOCKED, SIDE RAILS UP, CALL LIGHT WITHIN REACH. ALL NEEDS AND ORDERS ADDRESSED DURING THE SHIFT. IV ACCESS MAINTAINED INTACT, SECURED AND FLUSHING WELL. ALL DUE MEDS GIVEN ORDERED & SCHEDULED ; PATIENT TOLERATED WELL. PATIENT KEPT CLEAN AND COMFORTABLE WITHIN THE SHIFT. PATIENT ENDORSED TO INCOMING SHIFT RN WITH STABLE VITAL SIGN AND FOR CONTINUITY OF CARE.
[2021-06-29 08:00] VITALS: BP 114/69
[2021-06-29] MEDS: Magnesium 1GM/D5W 100ML PREMIX 100 ML IV SCH ×2 (08:00→09:45)
[2021-06-29] MEDS: BLOOD SUGAR DIAGNOSTIC 1 EACH STRIP VI SCH ×4 (08:00→22:48)
--- NOTE | 2021-06-29 08:00 | NUR ---
RN NOTES RECEIVED PATIENT IN THE BED SITTING EDGE OF THE BED. PATIENT A/O X4, NO ACUTE RESPIRATORY DISTRESS. BKA ON RIGHT LEG USING URINAL. DUE MEDICATION ADMINISTERED, BS 225 MG/DL COVERAGE GIVEN, NEEDS ATTENDED AND ANTICIPATED, PATIENT ABLE TO TURN AND REPOSTION SELF IN THE BED. LUCILLE LIGHT WITHIN TO REACH, WILL FOLLOW UP.
[2021-06-29] MEDS: TAMSULOSIN 0.4 MG CAP.SR.24H PO SCH (08:14)
[2021-06-29] MEDS: PREGABALIN 100 MG CAPSULE PO SCH ×2 (08:14→16:17)
[2021-06-29] MEDS: ATORVASTATIN 10 MG TABLET PO SCH (08:14)
[2021-06-29] MEDS: CHOLECALCIFEROL 1,000 UNIT TABLET (VIT D3) PO SCH (08:14)
[2021-06-29] MEDS: LINAGLIPTIN 5 MG TABLET PO SCH (08:14)
[2021-06-29] MEDS: FINASTERIDE (5 MG) 5 MG TABLET PO SCH (08:14)
[2021-06-29] MEDS: CLOPIDOGREL BISULFATE 75 MG TABLET PO SCH (08:14)
[2021-06-29] MEDS: ASPIRIN 81 MG TAB.CHEW PO SCH (08:14)
[2021-06-29] MEDS: POTASSIUM CHLORIDE 10 MEQ TABLET.SA PO SCH ×2 (08:15→16:18)
[2021-06-29] MEDS: INSULIN GLARGINE, 100 UNIT/ML CARTRIDGE SQ SCH ×2 (08:35→17:16)
[2021-06-29] MEDS: INSULIN REGULAR, HUMAN 100 UNIT/ML 3 ML VIAL SQ PRN ×3 (08:36→17:18)
[2021-06-29] MEDS ORDERED: BUMETANIDE INJ 16 MG in IV NS 0.9% 16 ML IV ONE (09:00)
[2021-06-29] MEDS: CEFEPIME 2 GM in IV D5W 100 ML IV SCH (10:06)
[2021-06-29 12:00] VITALS: BP 136/58
--- NOTE | 2021-06-29 13:15 | NUR ---
rn notes patient sitting edge of the bed, bs-333mg/dl coverage given, infusing heparin 1400 u on left ua intact. patient refused pain, tolerated lunch well call light within to reach. will follow up.
[2021-06-29 16:00] VITALS: BP 133/65
--- NOTE | 2021-06-29 17:18 | NUR ---
rn notes bs-313 mg/dl coverage given , due medication administered.
--- NOTE | 2021-06-29 18:30 | NUR ---
RN NOTES PATIENT STABLE AT THIS TIME, NO ACUTE RESPIRATORY DISTRESS, ROOM AIR. BS-313 MG/DL COVERAGE GIVEN , SCHEDULED MEDICATION ADMINISTERED WELL. INFUSING HEPARIN 1400 UNITS AT THIS TIME ON RIGHT UPPER MIDLINE INTACT. PATIENT TOLERATED DINNER WELL. NEED ASSIST MOST OF THE TIME FOR URINATING. CALL LIGHT WITHIN TO REACH. ENDORSED ONCOMING NURSE CATERINA.
[2021-06-29] MEDS: HEPARIN INFUSION/D5W 500 ML IV PRN (18:34)
--- NOTE | 2021-06-29 19:25 | NUR ---
RN NOTE PT RECEIVED IN BED. PT IS ON ROOM AIR SHOWING NO S/S OF RESP DISTRESS/SOB. BREATHING EVEN AND UNLABORED. PT IS ALERT AND ORIENTED X4. ON THERAPEUTIC STRATEGY LEAD SHOWING NSR. SKIN INTACT. ON REGULAR DIET. IV ACCESS NOTED ON LEFT UPPER ARM ML AND RIGHT UPPER ARM ML. LINE FLUSHED, PATENT, AND INTACT WITH NO SIGNS OF INFILTRATION. HEPARIN DRIP RUNNING AT 1400 UNITS. PT TOLERATING WELL WITH NO ADVERSE REACTIONS NOTED/NO SIGNS OF BLEEDING. ALL SAFETY MEASURES IMPLEMENTED. CALL LIGHT WITHIN REACH. BED ALARM ON. BED LOCKED AND IN LOWEST POSITION. SIDE RAILS UP. WILL CONTINUE TO MONITOR AND ASSESS FOR ANY CHANGES DURING SHIFT.
[2021-06-29 20:00] VITALS: BP 98/56
[2021-06-29] MEDS: TEMAZEPAM 15 MG CAPSULE PO PRN (22:49)
[2021-06-29] MEDS: *INSULIN REGULAR(HUMULIN R)HUM 100 UNIT/ML VIAL SQ PRN (22:51)
[2021-06-30] VITALS: BP 117/70
--- NOTE | 2021-06-30 03:52 | NUR ---
RN NOTE PT IN BED RESTING COMFORTABLY. HEPARIN DRIP RUNNING WITH NO ADVERSE REACTIONS NOTED AND NO SIGNS OF BLEEDING. WILL CONTINUE TO MONITOR AND ASSESS FOR ANY CHANGES.
[2021-06-30 04:00] VITALS: BP 100/55
[2021-06-30 06:12] LABS: ALANINE AMINOTRANSFERASE 24 U/L (12-78); ALBUMIN 2.9 g/dL (3.4-5.0); ALKALINE PHOSPHATASE 97 U/L (46-116); ASPARTATE AMINOTRANSFERASE 23 U/L (15-37); BILIRUBIN,TOTAL 0.5 mg/dL (0.2-1.0); CALCIUM, SERUM 8.8 mg/dL (8.5-10.1); CARBON DIOXIDE 32 mmol/L (21-32); CHLORIDE 94 mmol/L (98-107); CREATININE 2.5 mg/dL (0.6-1.3); GLUCOSE 256 mg/dL (74-106); MAGNESIUM 2.1 mg/dL (1.8-2.4); PHOSPHORUS 4.8 mg/dL (2.5-4.9); POTASSIUM 4.4 mmol/L (3.5-5.1); SODIUM SERUM 134 mmol/L (136-145); TOTAL PROTEIN, SERUM 7.4 g/dL (6.4-8.2); UREA NITROGEN, BLOOD 60 mg/dL (7-18)
[2021-06-30 06:53] LABS: BASOPHILS % (AUTO) 0.2 % (0.0-2.0); EOSINOPHILS % (AUTO) 3.3 % (0.0-6.0); HEMATOCRIT 34 % (39-51); HEMOGLOBIN 11.2 g/dL (13.5-17.5); LYMPHOCYTES # (AUTO) 2.2 K/uL (0.8-4.8); LYMPHOCYTES % (AUTO) 23.5 % (20.0-44.0); MEAN CORPUSCULAR HGB CONC 33 g/dl (31.0-36.0); MEAN CORPUSCULAR VOLUME 89 fL (80-96); MONOCYTES # (AUTO) 1.2 K/uL (0.1-1.30); MONOCYTES % (AUTO) 12.1 % (2.0-12.0); NEUTROPHILS # (AUTO) 5.8 K/uL (1.8-8.9); NEUTROPHILS % (AUTO) 60.9 % (43.0-81.0); PLATELET COUNT (AUTO) 280 K/uL (150-450); RED BLOOD CELL COUNT(AUTO) 3.83 MIL/uL (4.5-6.0); WHITE BLOOD COUNT (AUTO) 9.5 K/uL (4.3-11.0)
--- NOTE | 2021-06-30 06:56 | NUR ---
RN NOTE NO CHANGES IN PT CONDITION DURING SHIFT. PT IS ON ROOM AIR SHOWING NO S/S OF RESP DISTRESS/SOB. BREATHING EVEN AND UNLABORED. PT IS ALERT AND ORIENTED X4. HEPARIN DRIP RUNNING AT 1400 UNITS. PT TOLERATING WELL WITH NO ADVERSE REACTIONS NOTED/NO SIGNS OF BLEEDING. ALL DUE MEDS GIVEN ORDERED. PT KEPT CLEAN AND COMFORTABLE. ALL SAFETY MEASURES IMPLEMENTED. CALL LIGHT WITHIN REACH. BED ALARM ON. BED LOCKED AND IN LOWEST POSITION. SIDE RAILS UP. WILL ENDORSE TO MORNING SHIFT RN FOR CATERINA.
[2021-06-30] MEDS: BLOOD SUGAR DIAGNOSTIC 1 EACH STRIP VI SCH ×4 (07:35→22:35)
[2021-06-30] MEDS: INSULIN REGULAR, HUMAN 100 UNIT/ML 3 ML VIAL SQ PRN ×3 (07:44→16:51)
--- NOTE | 2021-06-30 07:47 | NUR ---
RN NOTES; RECEIVED PT IN BED RESTING, IN SUPINE POS. PT MOVES INDEPENDENTLY IN BED. A/OX4, ABLE TO MEET NEEDS KNOWN. PT ON RA, TOLERATING WELL, NO SOB, OR DISTRESS NOTED. NO C/O PAIN AT THIS TIME. PT ON A HEP DRIP. WAITING FOR PTT RESULTS. ALL SAFETY MEASURES RENDERED. BED IN LOWEST POS. LOCKED WITH CALL LIGHT WITHIN REACH. WILL CONTINUE TO MONITOR.
[2021-06-30 08:00] VITALS: BP 112/55
[2021-06-30] MEDS: CHOLECALCIFEROL 1,000 UNIT TABLET (VIT D3) PO SCH (08:27)
[2021-06-30] MEDS: ASPIRIN 81 MG TAB.CHEW PO SCH (08:27)
[2021-06-30] MEDS: TAMSULOSIN 0.4 MG CAP.SR.24H PO SCH (08:27)
[2021-06-30] MEDS: LINAGLIPTIN 5 MG TABLET PO SCH (08:27)
[2021-06-30] MEDS: FINASTERIDE (5 MG) 5 MG TABLET PO SCH (08:27)
[2021-06-30] MEDS: ATORVASTATIN 10 MG TABLET PO SCH (08:27)
[2021-06-30] MEDS: PREGABALIN 100 MG CAPSULE PO SCH ×2 (08:27→16:51)
[2021-06-30] MEDS: POTASSIUM CHLORIDE 10 MEQ TABLET.SA PO SCH ×2 (08:27→16:51)
[2021-06-30] MEDS: INSULIN GLARGINE, 100 UNIT/ML CARTRIDGE SQ SCH ×2 (08:28→16:48)
[2021-06-30] MEDS: CLOPIDOGREL BISULFATE 75 MG TABLET PO SCH (08:31)
[2021-06-30] MEDS ORDERED: CEFTRIAXONE 1 G in IV D5W 50 ML IV SCH (09:00)
[2021-06-30] MEDS: CEFTRIAXONE 2 G in IV D5W 100 ML IV SCH (09:04)
[2021-06-30] MEDS: ACETAMINOPHEN 325 MG TABLET PO PRN (09:20)
[2021-06-30] MEDS: HEPARIN INFUSION/D5W 500 ML IV PRN (10:53)
[2021-06-30 12:00] VITALS: BP 111/74
--- NOTE | 2021-06-30 12:05 | NUR ---
TALKED TO CHICHI FROM [facility] ABOUT PT'S HEALTH STATUS. sHE WILL CALL BACK IN ONE TO TWO DAYS FOR UPDATE ON PT'S DISCHARGE STATUS.
[2021-06-30 16:00] VITALS: BP 160/78
--- NOTE | 2021-06-30 18:51 | NUR ---
RN NOTES; PT IN BED RESTING. PT A/OX4, NO SOB OR DISTRESS NOTED. PT HAS NO C/O PAIN AT THIS TIME. PT ON HEPARIN DRIP, PATENT, FLUSHED WITH NO SIGNS OF INFILTRATION. ALL MEDICATIONS GIVEN AND TOLERATED WELL. PT KEPT CLEAN, DRY AND COMFORTABLE. ALL SAFETY MEASURES RENDERED, BED LOCKED IN LOWEST POS. SIDE RAILS UP X3, WITH CALL LIGHT WITHIN REACH. NO SIGNIFICANT CHANGES IN PT HEALTH STATUS ON SHIFT. WILL ENDORSE TO GAMBLING FLOOR SUPERVISOR RN. PT IN STABLE CONDITION.
--- NOTE | 2021-06-30 19:30 | NUR ---
RN NOTE PT RECEIVED IN BED. PT IS ON ROOM AIR SHOWING NO S/S OF RESP DISTRESS/SOB. BREATHING EVEN AND UNLABORED. PT IS ALERT AND ORIENTED X4. IV ACCESS NOTED ON LEFT UPPER ARM ML AND RIGHT UPPER ARM ML. LINE FLUSHED, PATENT, AND INTACT WITH NO SIGNS OF INFILTRATION. HEPARIN DRIP RUNNING AT 1400 UNITS. PT TOLERATING WELL WITH NO ADVERSE REACTIONS NOTED/NO SIGNS OF BLEEDING. ALL SAFETY MEASURES IMPLEMENTED. CALL LIGHT WITHIN REACH. BED ALARM ON. BED LOCKED AND IN LOWEST POSITION. SIDE RAILS UP. WILL CONTINUE TO MONITOR AND ASSESS FOR ANY CHANGES DURING SHIFT.
[2021-06-30 20:00] VITALS: BP 123/53
[2021-06-30] MEDS: *INSULIN REGULAR(HUMULIN R)HUM 100 UNIT/ML VIAL SQ PRN (22:39)
--- NOTE | 2021-06-30 23:19 | NUR ---
RN NOTE PT BLOOD SUGAR WAS 402 INITIALLY, AND 398 AFTER SECOND CHECK. SPOKE WITH DR. DEE ABOUT PT BLOOD SUGAR BEING ELEVATED, DR. DEE ORDERED ADDITIONAL 10 UNITS OF INSULIN. TOTAL OF 20 UNITS OF REGULAR INSULIN. WILL RE-ASSESS AND CONTINUE TO MONITOR FOR ANY CHANGES.
[2021-06-30] MEDS ORDERED: INSULIN REGULAR, HUMAN 100 UNIT/ML 10 ML VIAL SQ ONE (23:30)
[2021-07-01] VITALS: BP 115/58
[2021-07-01] MEDS: TEMAZEPAM 15 MG CAPSULE PO PRN (00:22)
[2021-07-01 04:00] VITALS: BP 97/55
[2021-07-01] MEDS: HEPARIN INFUSION/D5W 500 ML IV PRN (05:37)
--- NOTE | 2021-07-01 06:39 | NUR ---
RN NOTE NO CHANGES IN PT CONDITION DURING SHIFT. PT IS ON ROOM AIR SHOWING NO S/S OF RESP DISTRESS/SOB. BREATHING EVEN AND UNLABORED. PT IS ALERT AND ORIENTED X4. IV ACCESS NOTED ON LEFT UPPER ARM ML AND RIGHT UPPER ARM ML. LINE FLUSHED, PATENT, AND INTACT WITH NO SIGNS OF INFILTRATION. HEPARIN DRIP RUNNING AT 1400 UNITS. NO ADVERSE REACTIONS NOTED/NO SIGNS OF BLEEDING. ALL DUE MEDS GIVEN ORDERED. PT KEPT CLEAN AND COMFORTABLE. ALL SAFETY MEASURES IMPLEMENTED. CALL LIGHT WITHIN REACH. BED ALARM ON. BED LOCKED AND IN LOWEST POSITION. SIDE RAILS UP. WILL ENDORSE TO MORNING SHIFT RN FOR CATERINA.
--- NOTE | 2021-07-01 07:20 | NUR ---
RN OPENING NOTES; PT IN BED RESTING. A/OX4, ABLE TO MEET NEEDS KNOWN. PT HAS NO C/O PAIN OR SOB. NO DISTRESS NOTED. PT IS REQUESTING O2 DME FOR HOME WHEN DISCHARGED. HEPARIN DRIP NOTED ON KRISTEL, PATENT AND DRAINING. SAFETY MEASURES RENDERED, BED IN LOWEST POS. LOCKED WITH CALL LIGHT WITHIN REACH. WILL CONTINUE TO MONITOR.
[2021-07-01] MEDS: BLOOD SUGAR DIAGNOSTIC 1 EACH STRIP VI SCH ×2 (07:40→11:08)
[2021-07-01] MEDS: INSULIN REGULAR, HUMAN 100 UNIT/ML 3 ML VIAL SQ PRN ×2 (07:41→11:07)
[2021-07-01 07:44] LABS: BASOPHILS % (AUTO) 0.3 % (0.0-2.0); EOSINOPHILS % (AUTO) 3.5 % (0.0-6.0); HEMATOCRIT 33 % (39-51); LYMPHOCYTES % (AUTO) 20.5 % (20.0-44.0); MEAN CORPUSCULAR HGB CONC 33 g/dl (31.0-36.0); MEAN CORPUSCULAR VOLUME 89 fL (80-96); MONOCYTES # (AUTO) 1.2 K/uL (0.1-1.30); NEUTROPHILS % (AUTO) 62.7 % (43.0-81.0); PLATELET COUNT (AUTO) 275 K/uL (150-450); RED BLOOD CELL COUNT(AUTO) 3.75 MIL/uL (4.5-6.0); WHITE BLOOD COUNT (AUTO) 9.5 K/uL (4.3-11.0)
[2021-07-01 07:48] LABS: CALCIUM, SERUM 9.4 mg/dL (8.5-10.1); CARBON DIOXIDE 33 mmol/L (21-32); CHLORIDE 96 mmol/L (98-107); CREATININE 2.3 mg/dL (0.6-1.3); GLUCOSE 207 mg/dL (74-106); POTASSIUM 4.4 mmol/L (3.5-5.1); SODIUM SERUM 135 mmol/L (136-145); UREA NITROGEN, BLOOD 67 mg/dL (7-18)
[2021-07-01 08:00] VITALS: BP 174/80
[2021-07-01] MEDS: FINASTERIDE (5 MG) 5 MG TABLET PO SCH (08:12)
[2021-07-01] MEDS: ASPIRIN 81 MG TAB.CHEW PO SCH (08:12)
[2021-07-01] MEDS: PREGABALIN 100 MG CAPSULE PO SCH (08:13)
[2021-07-01] MEDS: TAMSULOSIN 0.4 MG CAP.SR.24H PO SCH (08:13)
[2021-07-01] MEDS: CLOPIDOGREL BISULFATE 75 MG TABLET PO SCH (08:13)
[2021-07-01] MEDS: CHOLECALCIFEROL 1,000 UNIT TABLET (VIT D3) PO SCH (08:13)
[2021-07-01] MEDS: ATORVASTATIN 10 MG TABLET PO SCH (08:13)
[2021-07-01] MEDS: LINAGLIPTIN 5 MG TABLET PO SCH (08:13)
[2021-07-01] MEDS: POTASSIUM CHLORIDE 10 MEQ TABLET.SA PO SCH (08:13)
[2021-07-01] MEDS: INSULIN GLARGINE, 100 UNIT/ML CARTRIDGE SQ SCH (08:14)
[2021-07-01] MEDS: CEFTRIAXONE 2 G in IV D5W 100 ML IV SCH (09:04)
[2021-07-01] MEDS: ACETAMINOPHEN 325 MG TABLET PO PRN (10:48)
[2021-07-01 12:00] VITALS: BP 152/86
[2021-07-01 12:40] LABS: LYMPHOCYTES % (MANUAL) 24 % (16-48); NEUTROPHILS % (MANUAL) 57 (42-76)
[2021-07-01 12:41] LABS: EOSINOPHILS % (MANUAL) 5 % (0-4); MONOCYTES % (MANUAL) 14 % (0-11.0)
[2021-07-01] MEDS ORDERED: FURO40TA5 PO (15:34)
--- NOTE | 2021-07-01 17:16 | NUR ---
RN NOTES; PT D/C TO HOME. PT IN STABLE CONDITION. DC INSTRUCTIONS GIVEN, AND EXPLAINED. PT VERBALIZED UNDERSTANDING. ALL PAPERWORK SIGNED AND COMPLETED. ALL BELONGINGS SENT. VS T 98, HR 97, RR 18, 02 SAT 97, BP 118/72. REPORT GIVEN TO AMBULANCE CREW [facility]. PT LEFT IN STABLE CONDITION.
== END 2021-07-01 17:38 | disposition home or self-care (01) | DRG 280 ==
LOC: ER 04:42 → ICU 06:30 → TELE1 06-28 17:53 → MEDSG1 07-01 08:47
PROVIDERS: ADMIT Family Medicine; ATTEND Student in an Organized Health Care Education/Training Program
PROC: 05H533Z Insertion of Infusion Device into Right Subclavian Vein, Percutaneous Approach (ICD-10-PCS; principal; 2021-06-27)
PROC: B546ZZA Ultrasonography of Right Subclavian Vein, Guidance (ICD-10-PCS; 2021-06-27)
PROC: 5A09357 Assistance with Respiratory Ventilation, Less than 24 Consecutive Hours, Continuous Positive Airway Pressure (ICD-10-PCS; 2021-06-27)
DX: I13.0 Hypertensive heart and chronic kidney disease with heart failure and stage 1 through stage 4 chronic kidney disease, or unspecified chronic kidney disease (principal); J96.01 Acute respiratory failure with hypoxia; I21.A1 Myocardial infarction type 2; I50.33 Acute on chronic diastolic (congestive) heart failure; N17.0 Acute kidney failure with tubular necrosis; E87.1 Hypo-osmolality and hyponatremia; E66.2 Morbid (severe) obesity with alveolar hypoventilation; E44.1 Mild protein-calorie malnutrition; N39.0 Urinary tract infection, site not specified; N18.9 Chronic kidney disease, unspecified; E11.22 Type 2 diabetes mellitus with diabetic chronic kidney disease; Z20.822 Contact with and (suspected) exposure to COVID-19; E11.65 Type 2 diabetes mellitus with hyperglycemia; I95.9 Hypotension, unspecified; D72.829 Elevated white blood cell count, unspecified; D63.8 Anemia in other chronic diseases classified elsewhere; M19.90 Unspecified osteoarthritis, unspecified site; Z87.891 Personal history of nicotine dependence; Z95.5 Presence of coronary angioplasty implant and graft; Z89.511 Acquired absence of right leg below knee; E87.5 Hyperkalemia; I25.119 Atherosclerotic heart disease of native coronary artery with unspecified angina pectoris; J44.9 Chronic obstructive pulmonary disease, unspecified; Z68.38 Body mass index [BMI] 38.0-38.9, adult; Z79.4 Long term (current) use of insulin; B96.89 Other specified bacterial agents as the cause of diseases classified elsewhere; I25.2 Old myocardial infarction; N40.1 Benign prostatic hyperplasia with lower urinary tract symptoms; Z79.82 Long term (current) use of aspirin
CPT/HCPCS: 36415; 36600; 71045-TC; 71250-TC; 80048-TC; 80053-TC; 80076-TC; 80202-TC; 81001; 82010-TC; 82803-TC; 82962-TC; 83605-TC; 83735-TC; 83880; 84100-TC; 84484-TC; 85025-TC; 85730-TC; 87040-TC; 87081-TC; 87086-TC; 87186-TC; C9803; G0378; J0692; J0696; J1644; J1815; J1940; J2543; J3370; J3475; J3490; J7050; J7060; U0003

== ENCOUNTER 2021-07-08 18:19 | Inpatient (IN) | payer MEDICARE, OTHER ==
[~2021-07-08] VITALS: Ht 170.2 cm; Wt 105.7 kg
[~2021-07-08 18:19] MED LIST changes: -GLIP5TAB13 PO; -POTA10TA10 PO
--- NOTE | 2021-07-08 18:41 | NUR ---
BIBRA60 FROM HOME C/O MIDSTERNAL CHEST PAIN 04/04. IN ROOM AIR AND DENIES SOB. RESPIRATION REGULAR AND UNLABORED. ATTACHED TO THE MONITOR. WILL CONTINUE TO MONITOR THE PATIENT.
--- NOTE | 2021-07-08 18:45 | NUR ---
IV LINE IS ESTABLISHED, BLOOD SPECIMEN COLLECTED AND SENT TO THE LAB. THE LINE IS SALINE LOCKED.
[2021-07-08 18:53] LABS: BASOPHILS % (AUTO) 0.4 % (0.0-2.0); EOSINOPHILS % (AUTO) 3.2 % (0.0-6.0); HEMATOCRIT 30 % (39-51); HEMOGLOBIN 9.6 g/dL (13.5-17.5); LYMPHOCYTES # (AUTO) 1.4 K/uL (0.8-4.8); LYMPHOCYTES % (AUTO) 19.1 % (20.0-44.0); MEAN CORPUSCULAR HGB CONC 32 g/dl (31.0-36.0); MEAN CORPUSCULAR VOLUME 91 fL (80-96); MONOCYTES # (AUTO) 0.7 K/uL (0.1-1.30); MONOCYTES % (AUTO) 9.5 % (2.0-12.0); NEUTROPHILS # (AUTO) 5.1 K/uL (1.8-8.9); NEUTROPHILS % (AUTO) 67.8 % (43.0-81.0); PLATELET COUNT (AUTO) 296 K/uL (150-450); WHITE BLOOD COUNT (AUTO) 7.6 K/uL (4.3-11.0)
--- NOTE | 2021-07-08 18:53 | NUR ---
X-RAY TECH AT THE BEDSIDE
[2021-07-08 19:03] LABS: CALCIUM, SERUM 8.2 mg/dL (8.5-10.1); CARBON DIOXIDE 25 mmol/L (21-32); CHLORIDE 109 mmol/L (98-107); CREATININE 1.8 mg/dL (0.6-1.3); GLUCOSE 343 mg/dL (74-106); POTASSIUM 5.2 mmol/L (3.5-5.1); SODIUM SERUM 142 mmol/L (136-145); UREA NITROGEN, BLOOD 77 mg/dL (7-18)
[2021-07-08 19:15] LABS: ALANINE AMINOTRANSFERASE 31 U/L (12-78); ALBUMIN 3.2 g/dL (3.4-5.0); ALKALINE PHOSPHATASE 90 U/L (46-116); ASPARTATE AMINOTRANSFERASE 22 U/L (15-37); BILIRUBIN,DIRECT 0.1 mg/dL (0.0-0.2); BILIRUBIN,TOTAL 0.3 mg/dL (0.2-1.0); TOTAL PROTEIN, SERUM 7.1 g/dL (6.4-8.2)
[2021-07-08] MEDS ORDERED: FUROSEMIDE 40 MG/4 ML VIAL IV ONE (20:00)
--- NOTE | 2021-07-08 20:15 | NUR ---
ROOM 328-1
--- NOTE | 2021-07-08 20:18 | NUR ---
PT STATED HE WANTS TO LEAVE THE HOSPITAL AGAINST THE MEDICAL ADVICE. DR OROZCO AT BED SIDE SPEAKING TO THE PT W/ FAMILY PRACTICE MD
--- NOTE | 2021-07-08 20:55 | NUR ---
REPORT GIVEN TO SKYLER STARK
[2021-07-08 21:00] VITALS: BP 116/86
--- NOTE | 2021-07-08 21:06 | NUR ---
PT WAS TRANSFERRED TO THIRD FLOOR UNDER ACLS
--- NOTE | 2021-07-08 21:07 | NUR ---
TERMINAL GAUGERRETAIL DISTRICT MANAGER NOTE PATIENT [facility] A/OX4. PATIENT SPEAKS GIBRALTARIAN BUT UNDERSTANDS [place]ER. NO S/S OF APPARENT DISTRESS ON ROOM AIR. DENIES PAIN. PATIENT ABLE TO MAKE NEEDS KNOWN. PATIENT HAS R. LEG PROSTHETIC NOTED. STOMACH DISTENDED. PATIENT WISHES TO BE FULL CODE. PATIENT VACCINATED FOR COVID BUT CANNOT SPECIFY. PATIENT NOT VACCINATED WITH FLU AND PNEUMONIA AND PER PATIENT HE DOES NOT WANT TO RECEIVED ANY OF THE OFFERED VACCINES. DENIES SMOKING AND ALCOHOL ABUSE. ALL NEEDS ATTENDED. SAFETY IN PLACE. TELE MONITOR READING SR 90'S. V/S FOLLOWS: 116/86, HR-99, SATURATION 94% ON ROOM AIR. RR-20, T-98.0. WILL FOLLOW THROUGH CARE PLAN.
[2021-07-08] MEDS ORDERED: TEMAZEPAM 15 MG CAPSULE PO PRN (21:30)
[2021-07-08 21:50] VITALS: BP 116/86
--- NOTE | 2021-07-08 22:00 | NUR ---
AGRICULTURAL EXTENSION EDUCATOR NOTE BLOOD SUGAR 288. WILL GIVE INSULIN LANTUS. ORDER FAXED TO [facility].
[2021-07-08] MEDS ORDERED: INSULIN GLARGINE, 100 UNIT/ML CARTRIDGE SQ ONE (23:13)
[2021-07-08] MEDS: INSULIN GLARGINE, 100 UNIT/ML CARTRIDGE SQ SCH (23:29)
[2021-07-09] VITALS: BP 121/64
[2021-07-09] MEDS ORDERED: DEXTROSE 50%-WATER 50 ML DISP.SYRIN IV PRN (00:30)
[2021-07-09 04:00] VITALS: BP 119/66
[2021-07-09 05:54] LABS: BASOPHILS % (AUTO) 0.4 % (0.0-2.0); EOSINOPHILS % (AUTO) 4.4 % (0.0-6.0); HEMATOCRIT 29 % (39-51); HEMOGLOBIN 9.6 g/dL (13.5-17.5); LYMPHOCYTES # (AUTO) 2.1 K/uL (0.8-4.8); LYMPHOCYTES % (AUTO) 29.1 % (20.0-44.0); MEAN CORPUSCULAR HGB CONC 33 g/dl (31.0-36.0); MEAN CORPUSCULAR VOLUME 90 fL (80-96); MONOCYTES # (AUTO) 0.8 K/uL (0.1-1.30); MONOCYTES % (AUTO) 11.6 % (2.0-12.0); NEUTROPHILS # (AUTO) 3.9 K/uL (1.8-8.9); NEUTROPHILS % (AUTO) 54.5 % (43.0-81.0); PLATELET COUNT (AUTO) 287 K/uL (150-450); RED BLOOD CELL COUNT(AUTO) 3.25 MIL/uL (4.5-6.0); WHITE BLOOD COUNT (AUTO) 7.1 K/uL (4.3-11.0)
--- NOTE | 2021-07-09 07:30 | NUR ---
CORPORATE DEVELOPMENT ASSOCIATE NOTES PT IN BED, AWAKE, ALERT AND ORIENTED, NOT IN DISTRESS, DR. OBREGON AT BEDSIDE, PLAN OF CARE BEING DISCUSSED WITH PT, NEEDS ATTENDED.
[2021-07-09] MEDS: BLOOD SUGAR DIAGNOSTIC 1 EACH STRIP VI SCH ×4 (07:50→21:30)
[2021-07-09 07:55] LABS: CALCIUM, SERUM 8.4 mg/dL (8.5-10.1); CARBON DIOXIDE 26 mmol/L (21-32); CHLORIDE 108 mmol/L (98-107); GLUCOSE 237 mg/dL (74-106); POTASSIUM 5.4 mmol/L (3.5-5.1); SODIUM SERUM 143 mmol/L (136-145)
[2021-07-09 07:56] LABS: ALANINE AMINOTRANSFERASE 34 U/L (12-78); ALBUMIN 3.2 g/dL (3.4-5.0); ALKALINE PHOSPHATASE 77 U/L (46-116); ASPARTATE AMINOTRANSFERASE 33 U/L (15-37); BILIRUBIN,TOTAL 0.3 mg/dL (0.2-1.0); CREATININE 1.8 mg/dL (0.6-1.3); UREA NITROGEN, BLOOD 72 mg/dL (7-18)
[2021-07-09 08:00] VITALS: BP 121/60
[2021-07-09] MEDS: INSULIN REGULAR, HUMAN 100 UNIT/ML 3 ML VIAL SQ PRN ×3 (08:08→17:29)
[2021-07-09 08:55] LABS: TOTAL PROTEIN, SERUM 7.4 g/dL (6.4-8.2)
[2021-07-09] MEDS: INSULIN ASPART/LISPRO 100 UNIT/ML CARTRIDGE SQ SCH ×3 (09:00→17:28)
[2021-07-09] MEDS ORDERED: SITAGLIPTIN PHOSPHATE 50 MG TABLET PO SCH (09:00)
[2021-07-09] MEDS: FINASTERIDE (5 MG) 5 MG TABLET PO SCH (09:48)
[2021-07-09] MEDS: ASPIRIN 81 MG TAB.CHEW PO SCH (09:48)
[2021-07-09] MEDS: PREGABALIN 100 MG CAPSULE PO SCH ×2 (09:48→17:04)
[2021-07-09] MEDS: TAMSULOSIN 0.4 MG CAP.SR.24H PO SCH (09:48)
[2021-07-09] MEDS: METOPROLOL TARTRATE 50 MG TABLET PO SCH ×2 (09:49→17:05)
[2021-07-09] MEDS: CLOPIDOGREL BISULFATE 75 MG TABLET PO SCH (09:49)
[2021-07-09] MEDS: FUROSEMIDE 40 MG/4 ML VIAL IV SCH (09:49)
[2021-07-09] MEDS: ENOXAPARIN SODIUM 120 MG/0.8 ML DISP.SYRIN SQ SCH ×2 (11:14→21:25)
--- NOTE | 2021-07-09 11:25 | NUR ---
SPORTS MEDICINE MASSEUR NOTES 9AM DOSE OF LISPRO INSULIN NOT GIVEN, MED NOT AVAILABLE AT THAT TIME, FOLLOWED UP WITH PHARMACY.
[2021-07-09 12:00] VITALS: BP 122/57
[2021-07-09] MEDS: LINAGLIPTIN 5 MG TABLET PO SCH (14:03)
[2021-07-09 16:00] VITALS: BP 137/98
--- NOTE | 2021-07-09 19:00 | NUR ---
MOBILE EQUIPMENT MECHANIC NOTES PT IN BED, RESTING, DENIES PAIN, NOT IN DISTRESS, CALL LIGHT WITHIN REACH, SEEN AND EXAMINED BY DR. PHOENIX THIS AFTERNOON, AWARE OF PT'S CURRENT LAB RESULTS, BLOOD SUGAR CHECKED DONE, PM MEDS GIVEN ORDERED, ALL NEEDS ATTENDED.
--- NOTE | 2021-07-09 19:16 | NUR ---
CONTINUITY OF CARE Patient in bed, awake. Sinus rhythm in the Tele monitor. On room air, tolerating well. No c/o pain at this time. Fall precaution maintained.
[2021-07-09 20:00] VITALS: BP 115/60
--- NOTE | 2021-07-09 21:27 | NUR ---
ANTICOAGULANT H/H 9.01/21 Plt 287 No symptoms of bleeding. Lovenox injection given co-signed by SKYLER Paez.
[2021-07-09] MEDS: *INSULIN REGULAR(HUMULIN R)HUM 100 UNIT/ML VIAL SQ PRN (21:31)
--- NOTE | 2021-07-09 21:32 | NUR ---
ACCU CHECK Blood glucose 146mg/dl Given 2 units insulin Regular per sliding scale, co-signed by SKYLER Moy.
[2021-07-09] MEDS: INSULIN GLARGINE, 100 UNIT/ML CARTRIDGE SQ SCH (22:03)
--- NOTE | 2021-07-09 22:03 | NUR ---
Given 16units insulin Lantus scheduled dose, co-signed by SKYLER Chao.
[2021-07-10 00:10] VITALS: BP 114/63
[2021-07-10 03:22] LABS: BASOPHILS % (AUTO) 0.6 % (0.0-2.0); EOSINOPHILS % (AUTO) 4.7 % (0.0-6.0); HEMATOCRIT 27 % (39-51); HEMOGLOBIN 9.1 g/dL (13.5-17.5); LYMPHOCYTES # (AUTO) 2.7 K/uL (0.8-4.8); LYMPHOCYTES % (AUTO) 33.9 % (20.0-44.0); MEAN CORPUSCULAR HGB CONC 33 g/dl (31.0-36.0); MEAN CORPUSCULAR VOLUME 90 fL (80-96); MONOCYTES # (AUTO) 0.8 K/uL (0.1-1.30); MONOCYTES % (AUTO) 10.7 % (2.0-12.0); NEUTROPHILS % (AUTO) 50.1 % (43.0-81.0); PLATELET COUNT (AUTO) 279 K/uL (150-450); RED BLOOD CELL COUNT(AUTO) 3.05 MIL/uL (4.5-6.0); WHITE BLOOD COUNT (AUTO) 7.9 K/uL (4.3-11.0)
[2021-07-10 04:00] VITALS: BP_SYST 11; BP_SYST 126; BP_DIAS 58
[2021-07-10 05:08] LABS: CALCIUM, SERUM 8.1 mg/dL (8.5-10.1); CARBON DIOXIDE 26 mmol/L (21-32); CHLORIDE 109 mmol/L (98-107); CREATININE 1.9 mg/dL (0.6-1.3); GLUCOSE 134 mg/dL (74-106); POTASSIUM 4.6 mmol/L (3.5-5.1); SODIUM SERUM 144 mmol/L (136-145); UREA NITROGEN, BLOOD 67 mg/dL (7-18)
[2021-07-10 05:23] VITALS: BP 126/55
[2021-07-10] MEDS: BLOOD SUGAR DIAGNOSTIC 1 EACH STRIP VI SCH ×4 (06:49→21:21)
[2021-07-10] MEDS: INSULIN REGULAR, HUMAN 100 UNIT/ML 3 ML VIAL SQ PRN ×3 (06:50→17:28)
--- NOTE | 2021-07-10 06:54 | NUR ---
ACCU CHECK Blood glucose 158mg/dl Given 2 units insulin Regular per sliding scale, co-signed by SKYLER Moy.
--- NOTE | 2021-07-10 07:18 | NUR ---
ROUTER MACHINE OPERATOR OPENING NOTE RECEIVED PATIENT ALERT/ ORIENTED X 4. PATIENT ON ROOM AIR, WITH EQUAL AND UNLABORED BREATHING. WITH IV ACCESS ON THE RIGHT AC G 20, ON SALINE LOCK, PATENT AND INTACT. NOT COMPLAINING OF ANY PAIN OR DISCOMFORT AT THIS TIME. PATIENT WITH RIGTH LEG STUMP WITH PROSTHESIS AT BEDSIDE. SAFETY MEASURES ENSURED WITH BED LOCKED, AND AT LOWEST POSITION. SIDE RAILS RAISED. CALL LIGHT WITHIN REACH AT ALL TIMES. WILL CONTINUE MONITORING THE PATIENT.
[2021-07-10 08:00] VITALS: BP 147/81
--- NOTE | 2021-07-10 08:30 | NUR ---
COAL AND ASH SUPERVISOR NOTE PATIENT SEEN BY DR. OBREGON WITH NO NEW ORDER AT THIS TIME. WILL CONTINUE TO MONITOR PATIENT.
[2021-07-10] MEDS: FUROSEMIDE 40 MG/4 ML VIAL IV SCH (08:39)
[2021-07-10] MEDS: ASPIRIN 81 MG TAB.CHEW PO SCH (08:40)
[2021-07-10] MEDS: CLOPIDOGREL BISULFATE 75 MG TABLET PO SCH (08:40)
[2021-07-10] MEDS: METOPROLOL TARTRATE 50 MG TABLET PO SCH ×2 (08:40→17:26)
[2021-07-10] MEDS: FINASTERIDE (5 MG) 5 MG TABLET PO SCH (08:40)
[2021-07-10] MEDS: PREGABALIN 100 MG CAPSULE PO SCH ×2 (08:41→17:26)
[2021-07-10] MEDS: LINAGLIPTIN 5 MG TABLET PO SCH (08:41)
[2021-07-10] MEDS: TAMSULOSIN 0.4 MG CAP.SR.24H PO SCH (08:42)
[2021-07-10] MEDS: ENOXAPARIN SODIUM 120 MG/0.8 ML DISP.SYRIN SQ SCH ×2 (09:10→21:18)
[2021-07-10] MEDS: INSULIN ASPART/LISPRO 100 UNIT/ML CARTRIDGE SQ SCH ×3 (09:11→17:28)
[2021-07-10 16:00] VITALS: BP 119/63
--- NOTE | 2021-07-10 19:00 | NUR ---
WOOD CARVING MACHINE OPERATOR CLOSING NOTE PATIENT ALERT/ ORIENTED X 4. PATIENT ON ROOM AIR, WITH EQUAL AND UNLABORED BREATHING. WITH IV ACCESS ON THE RIGHT AC G 20, ON SALINE LOCK, PATENT AND INTACT. NOT COMPLAINING OF ANY PAIN OR DISCOMFORT AT THIS TIME. PATIENT WITH RIGHT LEG STUMP WITH PROSTHESIS AT BEDSIDE. SAFETY MEASURES ENSURED WITH BED LOCKED, AND AT LOWEST POSITION. SIDE RAILS RAISED. CALL LIGHT WITHIN REACH AT ALL TIMES. WILL ENDORSE PATIENT FOR CONTINUITY OF CARE.
--- NOTE | 2021-07-10 19:30 | NUR ---
RN OPENING NOTE PATIENT SITTING AT THE EDGE OF THE BED, A/O X 4, ABLE TO MAKE NEEDS KNOWN. NO COMPLAIN OF ANY CHEST PAIN AT THIS TIME. PATIENT IS ON ROOM AIR, TOLERATING WELL NOT IN ANY APPARENT DISTRESS. RAC 20 G PATENT AND INTACT, SALINE LOCKED ONLY. D/C PLANNING TOMORROW POSSIBLY. SAFETY MEASURES IN PLACE: BED LOCKED AND IN LOWEST POSITION, CALL LIGHT WITHIN REACH, SIDE RAILS UP. WILL MONITOR PATIENT CLOSELY. Addendum: 07/10/21 at 1537 by DANIELA PULIDO RN TELE MONITOR READS SR 71
[2021-07-10] MEDS: INSULIN GLARGINE, 100 UNIT/ML CARTRIDGE SQ SCH (21:19)
[2021-07-10] MEDS: *INSULIN REGULAR(HUMULIN R)HUM 100 UNIT/ML VIAL SQ PRN (21:20)
--- NOTE | 2021-07-10 22:00 | NUR ---
RN NOTE BS 206 MG/DL. 4 UNITS REGULAR INSULIN GIVEN, LANTUS ADMINISTERED WELL. SNACKS PROVIDED FOR PATIENT. WILL MONITOR FOR HYPO/HYPERGLYCEMIA
[2021-07-11 00:31] VITALS: BP 111/54
[2021-07-11 04:08] VITALS: BP 105/55
[2021-07-11] MEDS: INSULIN REGULAR, HUMAN 100 UNIT/ML 3 ML VIAL SQ PRN ×3 (06:01→17:07)
[2021-07-11 06:48] LABS: BASOPHILS % (AUTO) 0.3 % (0.0-2.0); EOSINOPHILS % (AUTO) 5.5 % (0.0-6.0); HEMATOCRIT 28 % (39-51); HEMOGLOBIN 9.2 g/dL (13.5-17.5); LYMPHOCYTES # (AUTO) 2.2 K/uL (0.8-4.8); LYMPHOCYTES % (AUTO) 28.9 % (20.0-44.0); MEAN CORPUSCULAR HGB CONC 33 g/dl (31.0-36.0); MEAN CORPUSCULAR VOLUME 89 fL (80-96); MONOCYTES # (AUTO) 0.8 K/uL (0.1-1.30); MONOCYTES % (AUTO) 10.8 % (2.0-12.0); NEUTROPHILS # (AUTO) 4.2 K/uL (1.8-8.9); NEUTROPHILS % (AUTO) 54.5 % (43.0-81.0); PLATELET COUNT (AUTO) 272 K/uL (150-450); WHITE BLOOD COUNT (AUTO) 7.7 K/uL (4.3-11.0)
[2021-07-11] MEDS: BLOOD SUGAR DIAGNOSTIC 1 EACH STRIP VI SCH ×3 (06:48→17:09)
--- NOTE | 2021-07-11 06:48 | NUR ---
RN CLOSING NOTE PATIENT'S EYES CLOSED, EASILY AWAKENED, A/O X 4, ABLE TO MAKE NEEDS KNOWN. BS 135 MG/DL, 2 UNITS OF REGULAR INSULIN GIVEN FOR COVERAGE. DOES NOT COMPLAIN OF ANY CHEST PAIN AT THIS TIME. TELE MONITOR READS SR 64 BPM. PATIENT IS ON ROOM AIR, TOLERATING WELL, NOT IN ANY APPARENT DISTRESS. RAC 20 G PATENT AND INTACT, SALINE LOCKED ONLY. SAFETY MEASURES IN PLACE: BED LOCKED AND IN LOWEST POSITION, CALL LIGHT WITHIN REACH, SIDE RAILS UP. ALL NEEDS MET AND ATTENDED, ALL ORDERS CARRIED OUT. WILL ENDORSE TO DAYS SHIFT NURSE FOR [place].
[2021-07-11 07:02] LABS: CALCIUM, SERUM 8.6 mg/dL (8.5-10.1); CARBON DIOXIDE 27 mmol/L (21-32); CHLORIDE 107 mmol/L (98-107); CREATININE 1.7 mg/dL (0.6-1.3); GLUCOSE 138 mg/dL (74-106); POTASSIUM 4.6 mmol/L (3.5-5.1); SODIUM SERUM 141 mmol/L (136-145); UREA NITROGEN, BLOOD 64 mg/dL (7-18)
--- NOTE | 2021-07-11 07:30 | NUR ---
GROUND HELPER STREET RAILWAY NOTES PT IN BED, AWAKE, ALERT AND ORIENTED, NOT IN DISTRESS, ON ROOM AIR, CALL LIGHT WITHIN REACH, DR. OBREGON AT BEDSIDE, PLAN OF CARE BEING DISCUSSED WITH PT, VERBALIZED UNDERSTANDING, KEPT WARM AND COMFORTABLE IN BED.
[2021-07-11] MEDS: FUROSEMIDE 40 MG/4 ML VIAL IV SCH (08:50)
[2021-07-11] MEDS: PREGABALIN 100 MG CAPSULE PO SCH ×2 (08:50→16:53)
[2021-07-11] MEDS: CLOPIDOGREL BISULFATE 75 MG TABLET PO SCH (08:50)
[2021-07-11] MEDS: TAMSULOSIN 0.4 MG CAP.SR.24H PO SCH (08:50)
[2021-07-11] MEDS: LINAGLIPTIN 5 MG TABLET PO SCH (08:50)
[2021-07-11] MEDS: ASPIRIN 81 MG TAB.CHEW PO SCH (08:50)
[2021-07-11] MEDS: FINASTERIDE (5 MG) 5 MG TABLET PO SCH (08:52)
[2021-07-11 08:54] VITALS: BP 102/64
[2021-07-11] MEDS: METOPROLOL TARTRATE 50 MG TABLET PO SCH ×2 (09:00→16:53)
[2021-07-11] MEDS: INSULIN ASPART/LISPRO 100 UNIT/ML CARTRIDGE SQ SCH ×3 (09:03→17:08)
[2021-07-11] MEDS: ENOXAPARIN SODIUM 120 MG/0.8 ML DISP.SYRIN SQ SCH (09:06)
--- NOTE | 2021-07-11 09:13 | NUR ---
WOUND CARE CONSULT: PT SEEN FOR DRY ABRASION TO LEFT ELBOW. NO WOUND CARE NEEDED AT THIS TIME. NO TENDERNESS, ERYTHEMA OR DRAINAGE NOTED. WILL SEE PRN.
[2021-07-11] MEDS ORDERED: ACETAMINOPHEN 325 MG TABLET PO PRN (11:00)
[2021-07-11 12:00] VITALS: BP 116/66
[2021-07-11 16:12] VITALS: BP 127/55
[2021-07-11 16:53] VITALS: BP 99/63
--- NOTE | 2021-07-11 18:05 | NUR ---
CONSOLE MANAGER NOTES PT AWAKE, ALERT AND ORIENTED, SITTING IN BED, NO COMPLAINT OF PAIN OR ANY DISCOMFORT, RESPIRATIONS NORMAL, DISCHARGE AND MEDICATION INSTRUCTIONS PROVIDED TO PT, VERBALIZED UNDERSTANDING, BELONGINGS ACCOUNTED FOR, PT REFUSED PHOTOS OF LEFT ELBOW SCAB, PT STATED THAT HIS SON AND DAUGHTER IN LAW ARE AWARE THAT HE IS BEING DISCHARGED HOME AND WILL VISIT HIM WHEN HE GETS HOME, PICKED UP BY 3 AMBULANCE PERSONNEL, LEFT VIA GUERNEY IN STABLE CONDITION.
[2021-07-11] MEDS ORDERED: ENOXAPARIN SODIUM 100 MG/ML DISP.SYRIN SQ SCH (21:00)
== END 2021-07-11 18:10 | disposition home or self-care (01) | DRG 280 ==
LOC: ER 18:25 → TELE 20:24
PROVIDERS: ADMIT Nurse Practitioner Acute Care; ATTEND Family Medicine
DX: I13.0 Hypertensive heart and chronic kidney disease with heart failure and stage 1 through stage 4 chronic kidney disease, or unspecified chronic kidney disease (principal); N17.0 Acute kidney failure with tubular necrosis; I21.A1 Myocardial infarction type 2; I50.33 Acute on chronic diastolic (congestive) heart failure; E44.1 Mild protein-calorie malnutrition; E66.2 Morbid (severe) obesity with alveolar hypoventilation; I25.10 Atherosclerotic heart disease of native coronary artery without angina pectoris; N18.9 Chronic kidney disease, unspecified; Z20.822 Contact with and (suspected) exposure to COVID-19; Z87.891 Personal history of nicotine dependence; M19.90 Unspecified osteoarthritis, unspecified site; E83.51 Hypocalcemia; E11.22 Type 2 diabetes mellitus with diabetic chronic kidney disease; E11.51 Type 2 diabetes mellitus with diabetic peripheral angiopathy without gangrene; Z89.511 Acquired absence of right leg below knee; Z95.5 Presence of coronary angioplasty implant and graft; Z79.4 Long term (current) use of insulin; Z79.51 Long term (current) use of inhaled steroids; Z79.82 Long term (current) use of aspirin; Z79.899 Other long term (current) drug therapy; E87.5 Hyperkalemia; J44.9 Chronic obstructive pulmonary disease, unspecified; D63.8 Anemia in other chronic diseases classified elsewhere; I25.2 Old myocardial infarction; E11.65 Type 2 diabetes mellitus with hyperglycemia; Z91.19 Patient's noncompliance with other medical treatment and regimen; Z99.81 Dependence on supplemental oxygen; Z79.02 Long term (current) use of antithrombotics/antiplatelets
CPT/HCPCS: 36415; 71045-TC; 80048-TC; 80053-TC; 80076-TC; 82962-TC; 83880; 84484-TC; 85025-TC; 87081-TC; 93307-TC; C9803; G0378; J1650; J1815; J1940

== ENCOUNTER 2021-07-16 13:42 | Inpatient (IN) | payer MEDICARE, OTHER ==
[~2021-07-16] VITALS: Ht 170.2 cm; Wt 110.7 kg
--- NOTE | 2021-07-16 14:02 | NUR ---
TO ER BED 9, BIB RA FROM HOME,C/O BEING "UNSTEADY,SHAKING" EVERSINCE I GOT COLDS, AAOX3, CONNECTED TO MONITOR
--- NOTE | 2021-07-16 14:36 | NUR ---
DR ROMERO AT BEDSIDE FOR EVAL
--- NOTE | 2021-07-16 15:45 | NUR ---
URINE COLLECTED AND SENT
[2021-07-16 16:22] LABS: BASOPHILS % (AUTO) 0.3 % (0.0-2.0); EOSINOPHILS % (AUTO) 2.9 % (0.0-6.0); HEMATOCRIT 26 % (39-51); HEMOGLOBIN 8.1 g/dL (13.5-17.5); LYMPHOCYTES # (AUTO) 1.9 K/uL (0.8-4.8); LYMPHOCYTES % (AUTO) 22.7 % (20.0-44.0); MEAN CORPUSCULAR HGB CONC 32 g/dl (31.0-36.0); MEAN CORPUSCULAR VOLUME 91 fL (80-96); MONOCYTES # (AUTO) 0.8 K/uL (0.1-1.30); MONOCYTES % (AUTO) 9.8 % (2.0-12.0); NEUTROPHILS # (AUTO) 5.3 K/uL (1.8-8.9); NEUTROPHILS % (AUTO) 64.3 % (43.0-81.0); PLATELET COUNT (AUTO) 242 K/uL (150-450); WHITE BLOOD COUNT (AUTO) 8.3 K/uL (4.3-11.0)
--- NOTE | 2021-07-16 16:30 | NUR ---
MOVE SHEET SUBMITTED
--- NOTE | 2021-07-16 16:38 | NUR ---
COVID SPECIMEN COLLECTED AND SENT TO THE LAB
[2021-07-16 16:43] LABS: BILIRUBIN,URINE NEGATIVE (NEGATIVE); COLOR,URINE YELLOW (YELLOW); LEUKOCYTE ESTERASE ,URINE NEGATIVE (NEGATIVE); NITRITE, URINE NEGATIVE (NEGATIVE); PROTEIN,URINE NEGATIVE (NEGATIVE); UGLUCOSE NEGATIVE (NEGATIVE); UROBILINOGEN,URINE 0.2 EU/dL (0.2)
[2021-07-16 17:05] LABS: ALANINE AMINOTRANSFERASE 28 U/L (12-78); ALBUMIN 3.1 g/dL (3.4-5.0); ALKALINE PHOSPHATASE 93 U/L (46-116); ASPARTATE AMINOTRANSFERASE 21 U/L (15-37); BILIRUBIN,DIRECT 0.1 mg/dL (0.0-0.2); BILIRUBIN,TOTAL 0.3 mg/dL (0.2-1.0); CALCIUM, SERUM 7.6 mg/dL (8.5-10.1); CARBON DIOXIDE 18 mmol/L (21-32); CHLORIDE 104 mmol/L (98-107); CREATININE 5.4 mg/dL (0.6-1.3); GLUCOSE 244 mg/dL (74-106); SODIUM SERUM 138 mmol/L (136-145); TOTAL PROTEIN, SERUM 6.7 g/dL (6.4-8.2)
[2021-07-16 17:11] LABS: UREA NITROGEN, BLOOD 118 mg/dL (7-18)
--- NOTE | 2021-07-16 17:27 | NUR ---
CALLED FOR TELE BED
--- NOTE | 2021-07-16 17:30 | NUR ---
CALLED NEPHOROLOGY CONSULT [phone] DR. CLEMENT STILL CLEANER TUBE.
[2021-07-16] MEDS ORDERED: DEXTROSE 50%-WATER 50 ML DISP.SYRIN IV PRN (18:00)
[2021-07-16] MEDS ORDERED: ALBUTEROL FS 2.5 MG/3 ML VIAL.NEB NEB ONE (18:00)
[2021-07-16] MEDS ORDERED: CALCIUM CHLORIDE 1,000 MG/10 ML DISP.SYRIN IV ONE (18:00)
[2021-07-16] MEDS ORDERED: ONDANSETRON HCL/PF 4 MG/2 ML VIAL IVP PRN (18:00)
[2021-07-16] MEDS ORDERED: *INSULIN REGULAR(HUMULIN R)HUM 100 UNIT/ML VIAL SQ PRN (18:00)
[2021-07-16] MEDS ORDERED: Z GUARD REMEDY 2 OZ OINT TP PRN (18:00)
--- NOTE | 2021-07-16 18:12 | NUR ---
PATIENT REFUSED HERNANDEZ INSERTION. DR TEMPLETON WAS MADE AWARE. HE ORDERED TO DO A BLADDER SCAN. UNFORTUNATELY BLADDER SCAN IS CURRENTLY WITH [facility]. ANTIQUE JEWELRY REPAIRER GABE WAS ALSO MADE AWARE AND WILL MAKE A FOLLOW UP.
[2021-07-16] MEDS ORDERED: ALBUTEROL FS 2.5 MG/3 ML VIAL.NEB ONE (18:21)
--- NOTE | 2021-07-16 18:39 | NUR ---
REPORT GIVEN TO NURSE LUKE FOR CATERINA
[2021-07-16 18:42] LABS: EOSINOPHILS % (MANUAL) 1 % (0-4); LYMPHOCYTES % (MANUAL) 23 % (16-48); MONOCYTES % (MANUAL) 10 % (0-11.0); NEUTROPHILS % (MANUAL) 66 (42-76)
[2021-07-16] MEDS ORDERED: FUROSEMIDE 40 MG/4 ML VIAL IV SCH (19:00)
[2021-07-16] MEDS ORDERED: SODIUM POLYSTYRENE SULF. PWD 15 GM UDC PO ONE (19:00)
[2021-07-16 19:30] VITALS: BP 93/51
--- NOTE | 2021-07-16 19:30 | NUR ---
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
[2021-07-16 20:00] VITALS: BP 93/75
--- NOTE | 2021-07-16 20:30 | NUR ---
COMMUNITY DEVELOPMENT OFFICER NOTES LASIX 80MG IV HELD FOR LOW BLOOD PRESSURE 93/51
--- NOTE | 2021-07-16 22:00 | NUR ---
SUPERINTENDENT DRILLING AND PRODUCTION NOTES ACCU-CHECK BLOOD SUGAR CHECK 183,COVERED WITH HUMULIN R 3 UNITS PER SLIDING SCALE.
[2021-07-16] MEDS: BLOOD SUGAR DIAGNOSTIC 1 EACH STRIP VI SCH (22:01)
[2021-07-16] MEDS: INSULIN REGULAR, HUMAN 100 UNIT/ML 3 ML VIAL SQ PRN (22:12)
--- NOTE | 2021-07-16 22:12 | NUR ---
CLERICAL ADJUDICATOR NOTES POTASSIUM LEVEL 6.0,GIVEN KAYEXALATE 30GM PO ORDERED.WILL MONITOR FOR LOOSE BOWEL MOVEMENT.
[2021-07-17] VITALS (7 sets, daily range): BP systolic 85–118; BP diastolic 39–56
[2021-07-17] MEDS: BLOOD SUGAR DIAGNOSTIC 1 EACH STRIP VI SCH ×4 (05:50→21:52)
--- NOTE | 2021-07-17 06:37 | NUR ---
TURN OUT WORKER NOTES HAD ONE TIME BOWEL MOVEMENT,URINE IN SMALL AMOUNT,BLADDER SCAN SHOWS 295 ML,SYSTOLIC BLOOD PRESSURE IMPROVED.IN NO ACUTE DISTRESSILL ENDORSE TO DAY NURSE FOR CATERINA.
[2021-07-17 06:48] LABS: BASOPHILS % (AUTO) 0.2 % (0.0-2.0); EOSINOPHILS % (AUTO) 3.4 % (0.0-6.0); HEMATOCRIT 23 % (39-51); HEMOGLOBIN 7.4 g/dL (13.5-17.5); LYMPHOCYTES % (AUTO) 23.6 % (20.0-44.0); MEAN CORPUSCULAR HGB CONC 33 g/dl (31.0-36.0); MEAN CORPUSCULAR VOLUME 89 fL (80-96); MONOCYTES % (AUTO) 11.6 % (2.0-12.0); NEUTROPHILS # (AUTO) 5.1 K/uL (1.8-8.9); NEUTROPHILS % (AUTO) 61.2 % (43.0-81.0); PLATELET COUNT (AUTO) 232 K/uL (150-450); RED BLOOD CELL COUNT(AUTO) 2.57 MIL/uL (4.5-6.0); WHITE BLOOD COUNT (AUTO) 8.4 K/uL (4.3-11.0)
--- NOTE | 2021-07-17 07:20 | NUR ---
COMPANY MARKER OPENING NOTES RECEIVED ON BED A/O X4 ALERT AND ORIENTED X 3-4. PAITENT WITH OXYGEN AT 2LPM VIA NASAL CANULA WITH EQUAL AND UNLABORED BREATHING, NO SIGNS OF RESPIRATORY DISTRESS. WITH IV ACCESS ON LEFT AC G20 ON SALINE LOCK. WITH STUMP ON THE RIGHT LEG WITH PROSTHESIS AT BEDSIDE. WTIH NO COMPLAINT OF PAIN AT THIS TIME. SAFETY MEASURES ENSURES WITH BED AT LOWEST AND LOCKED POSITION, SIDERAILS RAISED AND CALL LIGHT WITHIN REACH AT ALL TIMES. WILL CONTINUE TO MONITOR PATIENT.
[2021-07-17] MEDS: ACETAMINOPHEN 325 MG TABLET PO PRN ×2 (07:39→21:53)
[2021-07-17 07:46] LABS: CHLORIDE 105 mmol/L (98-107); POTASSIUM 5.2 mmol/L (3.5-5.1); SODIUM SERUM 139 mmol/L (136-145)
[2021-07-17 07:47] LABS: CALCIUM, SERUM 7.1 mg/dL (8.5-10.1); CARBON DIOXIDE 19 mmol/L (21-32); CREATININE 5.1 mg/dL (0.6-1.3); GLUCOSE 129 mg/dL (74-106); PHOSPHORUS 7.9 mg/dL (2.5-4.9); UREA NITROGEN, BLOOD 118 mg/dL (7-18)
[2021-07-17 07:48] LABS: ALANINE AMINOTRANSFERASE 28 U/L (12-78); ALBUMIN 2.9 g/dL (3.4-5.0); ALKALINE PHOSPHATASE 76 U/L (46-116); ASPARTATE AMINOTRANSFERASE 21 U/L (15-37); BILIRUBIN,TOTAL 0.2 mg/dL (0.2-1.0); MAGNESIUM 2.9 mg/dL (1.8-2.4); TOTAL PROTEIN, SERUM 6.2 g/dL (6.4-8.2)
--- NOTE | 2021-07-17 08:30 | NUR ---
PODIATRIST ORTHOPEDIC NOTE SEEN BY DR. TEMPLETON AND DR. ARTEAGA, COMPLAINED OF SOME CHEST PAIN. MD'S AWARE. TYLENOL GIVEN AND RELAXATION TECHNIQUES INSTRUCTED. MD ALSO NOTIFIED THAT UNABLE TO GIVE LASIX BECAUSE OF HYPOTENSION. WILL CONTINUE TO MONITOR PATIENT.
[2021-07-17] MEDS: INSULIN ASPART/LISPRO 100 UNIT/ML CARTRIDGE SQ SCH ×3 (08:57→17:46)
[2021-07-17] MEDS: INSULIN GLARGINE, 100 UNIT/ML CARTRIDGE SQ SCH (08:58)
[2021-07-17] MEDS: CLOPIDOGREL BISULFATE 75 MG TABLET PO SCH (08:59)
[2021-07-17] MEDS: TAMSULOSIN 0.4 MG CAP.SR.24H PO SCH (08:59)
[2021-07-17] MEDS: ASPIRIN 81 MG TAB.CHEW PO SCH (09:00)
[2021-07-17] MEDS: FINASTERIDE (5 MG) 5 MG TABLET PO SCH (09:00)
[2021-07-17 09:27] LABS: IRON, SERUM 23 ug/dl (50-175); TOTAL IRON BINDING CAPACITY 370 ug/dl (250-450)
[2021-07-17] MEDS: IV NS 0.9% 1,000 ML IV SCH ×2 (09:52→22:18)
[2021-07-17] MEDS: MORPHINE SULFATE INJ 2 MG/ML DISP.SYRIN IV PRN ×2 (10:57→18:56)
[2021-07-17] MEDS ORDERED: NITROGLYCERIN 0.4 MG/TAB BOTTLE SL PRN (11:00)
[2021-07-17 11:21] LABS: ABG BASE EXCESS -10.5 mmol/L; ABG OXYGEN SATURATION 96.7 % (92.0-98.5); ABG PCO2 37.6 mmHg (35.0-45.0); ABG PH 7.245 (7.350-7.450); ABG PO2 102.9 mmHg (75.0-100.0); AaDO2 52.4 mmHg; COHb 0.3 % (0.5-1.5); MetHb 0.3 % (0.0-1.5); O2Hb 96.1 % (94.0-97.0); SITE, ABG Left Brachial; VENT MODE, BG Nasal Cannula
[2021-07-17] MEDS: INSULIN REGULAR, HUMAN 100 UNIT/ML 3 ML VIAL SQ PRN ×2 (12:36→22:22)
[2021-07-17] MEDS: HEPARIN SODIUM, PORCINE 5000 UNITS/1 ML VIAL SQ SCH ×2 (12:37→21:00)
[2021-07-17] MEDS: CITRIC ACID/SODIUM CITRATE (BICITRA)15 ML UDC PO SCH ×3 (12:40→21:52)
[2021-07-17] MEDS ORDERED: LIDOCAINE/PRILOCAINE 1 EA KIT TP ONE (14:00)
--- NOTE | 2021-07-17 16:00 | NUR ---
NEONATAL CRITICAL CARE NURSE NOTE SEEN BY DR. COTTON WITH ORDERS MADE AND CARRIED OUT. PATIENT CATHETERIZED ORDERED. TOLERATED WELL. WILL CONTINUE TO MONITOR PATIENT.
--- NOTE | 2021-07-17 19:00 | NUR ---
NATURAL GAS FIELD PROCESSING SUPERVISOR CLOSING NOTES PATIENT ON BED A/O X4 ALERT AND ORIENTED X 3-4. PATIENT WITH OXYGEN AT 2LPM VIA NASAL CANULA WITH EQUAL AND UNLABORED BREATHING, NO SIGNS OF RESPIRATORY DISTRESS. WITH IV ACCESS ON LEFT AC G20 ON SALINE LOCK. WITH STUMP ON THE RIGHT LEG WITH PROSTHESIS AT BEDSIDE. WITH NO COMPLAINT OF PAIN AT THIS TIME. WITH HERNANDEZ CATHETER TO URINE BAG, INFUSING WELL. SAFETY MEASURES ENSURES WITH BED AT LOWEST AND LOCKED POSITION, SIDERAILS RAISED AND CALL LIGHT WITHIN REACH AT ALL TIMES. WILL ENDORSE PATIENT FOR CONTINUITY OF CARE.
--- NOTE | 2021-07-17 19:10 | NUR ---
TELE/RN OPENING NOTE RECEIVED PATIENT RESTING IN BED. AWAKE, ALERT AND ORIENTED X 4. ABLE TO MAKE NEEDS KNOWN. DENIES PAIN AT THIS TIME. CONTINUES ON O2 2L VIA NC WITH NO S/SX OF RESPIRATORY DISTRESS NOTED. IV ACCESS TO LEFT AC #20G INTACT AND PATENT. CONTINUES ON IVF NS 0.9% @ 125ML/HR. HERNANDEZ CATHETER IN PLACE DRAINING CLEAR, YELLOW URINE. TELE MONITOR ON WITH CURRENT READING SR WITH PVCS AND PACS. CALL LIGHT WITHIN REACH. ASPIRATION, FALL AND SAFETY PRECAUTIONS MAINTAINED. WILL CONTINUE TO MONITOR.
--- NOTE | 2021-07-17 22:00 | NUR ---
TELE/RN NOTE PATIENT WITH LOW H/H 7.11/15. HOLDING HEPARIN DOSE TONIGHT.
[2021-07-18] VITALS: BP 111/51
[2021-07-18] MEDS: MORPHINE SULFATE INJ 2 MG/ML DISP.SYRIN IV PRN ×2 (00:56→11:02)
[2021-07-18 04:00] VITALS: BP 94/57
[2021-07-18] MEDS: BLOOD SUGAR DIAGNOSTIC 1 EACH STRIP VI SCH ×5 (06:38→21:19)
[2021-07-18] MEDS: INSULIN REGULAR, HUMAN 100 UNIT/ML 3 ML VIAL SQ PRN (06:40)
--- NOTE | 2021-07-18 06:40 | NUR ---
TELE/RN CLOSING NOTE PATIENT CURRENTLY RESTING IN BED. AWAKE, ALERT AND ORIENTED X 4. ABLE TO MAKE NEEDS KNOWN. DENIES PAIN AT THIS TIME. CONTINUES ON O2 3L VIA NC WITH NO S/SX OF RESPIRATORY DISTRESS NOTED. IV ACCESS TO LEFT AC #20G INTACT AND PATENT. CONTINUES ON IVF NS 0.9% @ 125ML/HR X 2L. HERNANDEZ CATHETER IN PLACE DRAINING CLEAR, YELLOW URINE. TELE MONITOR ON WITH CURRENT READING SR. CALL LIGHT WITHIN REACH. ASPIRATION, FALL AND SAFETY PRECAUTIONS MAINTAINED. WILL ENDORSE PLAN OF CARE TO ONCOMING SHIFT.
--- NOTE | 2021-07-18 07:30 | NUR ---
TELE/RN OPENING NOTES RECEIVED PATIENT IN BED. AWAKE, ALERT AND ORIENTED X 4. ABLE TO MAKE NEEDS KNOWN. DENIES PAIN AT THIS TIME. ON O2 2L VIA NC WITH NO S/SX OF RESPIRATORY DISTRESS NOTED. IV ACCESS TO RIGHT HAND G#22, INTACT AND PATENT, HERNANDEZ CATHETER IN PLACE DRAINING CLEAR, YELLOW URINE. TELE MONITOR ON WITH CURRENT READING ST HR 103 WITH PVCS AND PACS. SAFETY PRECAUTIONS IN PLACE: CALL LIGHT WITHIN REACH. ASPIRATION, FALL AND SAFETY PRECAUTIONS MAINTAINED. WILL CONTINUE TO MONITOR ACCORDINGLY.
[2021-07-18 08:26] LABS: ABG BASE EXCESS -7.9 mmol/L; ABG OXYGEN SATURATION 97.7 % (92.0-98.5); ABG PCO2 41.4 mmHg (35.0-45.0); ABG PH 7.267 (7.350-7.450); ABG PO2 113.8 mmHg (75.0-100.0); AaDO2 65.9 mmHg; COHb 0.3 % (0.5-1.5); MetHb 0.1 % (0.0-1.5); O2Hb 97.3 % (94.0-97.0); SITE, ABG Left Brachial; VENT MODE, BG 3L NC
[2021-07-18 08:35] LABS: ALANINE AMINOTRANSFERASE 28 U/L (12-78); ALBUMIN 3.1 g/dL (3.4-5.0); ALKALINE PHOSPHATASE 78 U/L (46-116); ASPARTATE AMINOTRANSFERASE 27 U/L (15-37); BILIRUBIN,TOTAL 0.3 mg/dL (0.2-1.0); CALCIUM, SERUM 7.3 mg/dL (8.5-10.1); CARBON DIOXIDE 18 mmol/L (21-32); CHLORIDE 108 mmol/L (98-107); CREATININE 3.8 mg/dL (0.6-1.3); GLUCOSE 145 mg/dL (74-106); MAGNESIUM 2.8 mg/dL (1.8-2.4); PHOSPHORUS 6.3 mg/dL (2.5-4.9); POTASSIUM 4.9 mmol/L (3.5-5.1); SODIUM SERUM 141 mmol/L (136-145); TOTAL PROTEIN, SERUM 6.7 g/dL (6.4-8.2)
[2021-07-18 08:38] LABS: UREA NITROGEN, BLOOD 107 mg/dL (7-18)
[2021-07-18 08:47] LABS: BASOPHILS % (AUTO) 0.2 % (0.0-2.0); EOSINOPHILS % (AUTO) 1.4 % (0.0-6.0); HEMATOCRIT 24 % (39-51); HEMOGLOBIN 7.7 g/dL (13.5-17.5); LYMPHOCYTES # (AUTO) 1.6 K/uL (0.8-4.8); LYMPHOCYTES % (AUTO) 15.2 % (20.0-44.0); MEAN CORPUSCULAR HGB CONC 32 g/dl (31.0-36.0); MEAN CORPUSCULAR VOLUME 89 fL (80-96); MONOCYTES # (AUTO) 1.2 K/uL (0.1-1.30); MONOCYTES % (AUTO) 11.8 % (2.0-12.0); NEUTROPHILS # (AUTO) 7.4 K/uL (1.8-8.9); NEUTROPHILS % (AUTO) 71.4 % (43.0-81.0); PLATELET COUNT (AUTO) 242 K/uL (150-450); RED BLOOD CELL COUNT(AUTO) 2.68 MIL/uL (4.5-6.0); WHITE BLOOD COUNT (AUTO) 10.3 K/uL (4.3-11.0)
[2021-07-18] MEDS: HEPARIN SODIUM, PORCINE 5000 UNITS/1 ML VIAL SQ SCH (08:58)
[2021-07-18] MEDS: FINASTERIDE (5 MG) 5 MG TABLET PO SCH (08:58)
[2021-07-18] MEDS: CITRIC ACID/SODIUM CITRATE (BICITRA)15 ML UDC PO SCH ×4 (08:58→20:51)
[2021-07-18] MEDS: CLOPIDOGREL BISULFATE 75 MG TABLET PO SCH (08:58)
[2021-07-18] MEDS: INSULIN ASPART/LISPRO 100 UNIT/ML CARTRIDGE SQ SCH ×3 (08:58→17:07)
[2021-07-18] MEDS: ASPIRIN 81 MG TAB.CHEW PO SCH (08:58)
[2021-07-18] MEDS: TAMSULOSIN 0.4 MG CAP.SR.24H PO SCH ×2 (09:00→21:01)
[2021-07-18] MEDS: INSULIN GLARGINE, 100 UNIT/ML CARTRIDGE SQ SCH (09:29)
[2021-07-18 09:53] VITALS: BP 101/64
[2021-07-18 10:16] VITALS: BP 101/64
--- NOTE | 2021-07-18 10:52 | NUR ---
RN NOTE RECEIVED CRITICAL LAB VALUE TROPONIN .420. DR LINARES NOTIFIED, STAT EKG ORDER PLACED.
[2021-07-18] MEDS: LORAZEPAM 0.5 MG TABLET PO PRN ×2 (11:02→20:51)
[2021-07-18] MEDS: ACETAMINOPHEN 325 MG TABLET PO PRN (14:35)
[2021-07-18] MEDS: SOD FERRIC GLUC 125 MG in IV NS 0.9% 100 ML IV SCH (14:54)
[2021-07-18] MEDS: ALBUTEROL HALF STRENGTH 1.25 MG/3 ML VIAL.NEB NEB PRN (15:18)
--- NOTE | 2021-07-18 17:02 | NUR ---
RN NOTE PATIENTS DAUGHTER PJ CALLED REGARDING PATIENT STATUS, MENTIONED SHE WOULD CALL OR VISIT TOMORROW
--- NOTE | 2021-07-18 18:49 | NUR ---
RN NOTE PATIENTS LAB TROPONIN WAS ORDERED 1400, RESULTS HAVE NOT BEEN RECEIVED. CALLED LAB AND PER FISHER TRAWL NET THEY ARE SHORT STAFF AND WILL TRY AND TRY AND BRING SOMEONE FROM ER TO DRAW PATIENT SOON POSSIBLE. PROVIDER TO BE NOTIFIED WHEN RESULTS ARE RECEIVED.
--- NOTE | 2021-07-18 18:52 | NUR ---
TELE/RN CLOSING PATIENT CURRENTLY IN BED. AWAKE, ALERT AND ORIENTED X 3. ABLE TO MAKE NEEDS KNOWN. DENIES PAIN AT THIS TIME. CONTINUES ON O2 2L VIA NC WITH NO S/SX OF RESPIRATORY DISTRESS NOTED. HERNANDEZ CATHETER IN PLACE DRAINING CLEAR, YELLOW URINE. ALL MEDICATION GIVEN AND NEEDS MET THROUGHT SHIFT. CALL LIGHT WITHIN REACH. ASPIRATION, FALL AND SAFETY PRECAUTIONS MAINTAINED. WILL ENDORSE TO NIGHT NURSE FOR CATERINA.
--- NOTE | 2021-07-18 19:20 | NUR ---
RN NOTE SUPERVISOR BLUEPRINTING AND PHOTOCOPY CAME TO DRAW PATIENT FOR TROPONIN LEVEL, PT REFUSED. PHLEBOTOMISTS , NURSE AND CHARGE NURSE AT BEDSIDE TRIED TO REASON WITH HIM AND STILL REFUSED, THIS IS THE SECOND TRY TO DRAW PATIENT. PATIENT IS STATING HE IS REFUSING AND "HAS A RIGHT TO REFUSE". PROVIDER HAS BEEN NOTIFIED.
--- NOTE | 2021-07-18 19:50 | NUR ---
MS/RN OPENING NOTE RECEIVED PATIENT SITTING AT SIDE OF BED. CLOUD SOLUTIONS ARCHITECT AT BEDSIDE ATTEMPTING BLOOD DRAW. PATIENT IS AWAKE, ALERT AND ORIENTED X 3. ABLE TO MAKE NEEDS KNOWN. DENIES PAIN AT THIS TIME. VISIBLY AGITATED. CONTINUES ON O2 2L VIA NC WITH NO S/SX OF RESPIRATORY DISTRESS NOTED. NO IV ACCESS AT THIS TIME - MD AWARE. HERNANDEZ CATHETER IN PLACE DRAINING CLEAR, YELLOW URINE. CALL LIGHT WITHIN REACH. ASPIRATION, FALL AND SAFETY PRECAUTIONS MAINTAINED. WILL CONTINUE TO MONITOR.
[2021-07-18 20:00] VITALS: BP 109/57
--- NOTE | 2021-07-18 21:00 | NUR ---
MS/RN NOTE PATIENT VISIBLY AGITATED - ATTEMPTING TO STAND UP. UNSTEADY AND SHAKY. PATIENT REPOSITIONED IN BED, ADL CARE PROVIDED. ADMINISTERED PRN ATIVAN PER MD ORDERS. PATIENT CURRENTLY RESTING IN BED. WILL CONTINUE TO MONITOR.
[2021-07-19] MEDS: LORAZEPAM 0.5 MG TABLET PO PRN ×3 (03:29→20:18)
[2021-07-19] MEDS: BLOOD SUGAR DIAGNOSTIC 1 EACH STRIP VI SCH ×4 (06:50→22:00)
--- NOTE | 2021-07-19 06:50 | NUR ---
MS/RN CLOSING NOTE PATIENT CURRENTLY SITTING AT SIDE OF BED. PATIENT IS AWAKE, ALERT AND ORIENTED X 2. ABLE TO MAKE NEEDS KNOWN. DENIES PAIN AT THIS TIME. CONTINUES ON O2 2L VIA NC WITH NO S/SX OF RESPIRATORY DISTRESS NOTED. NO IV ACCESS AT THIS TIME - MD AWARE. HERNANDEZ CATHETER IN PLACE DRAINING CLEAR, YELLOW URINE. CALL LIGHT WITHIN REACH. ASPIRATION, FALL AND SAFETY PRECAUTIONS MAINTAINED. WILL ENDORSE PLAN OF CARE TO ONCOMING SHIFT.
[2021-07-19] MEDS: INSULIN REGULAR, HUMAN 100 UNIT/ML 3 ML VIAL SQ PRN ×2 (06:51→12:34)
--- NOTE | 2021-07-19 07:52 | NUR ---
MS RN OPENING NOTE Patient in bed, awake. A/O x 2-3, easily agitated. On O2 at 2 LPM, breathing evenly and unlabored. No SOB or s/s of distress noted. No IV access at this time, MD aware. Keating catheter in place, draining to a yellow colored urine. Safety precautions in place: bed in low, locked position; siderails up x 2; call light within reach. Will continue to monitor.
[2021-07-19 08:00] VITALS: BP 107/67
[2021-07-19] MEDS: INSULIN ASPART/LISPRO 100 UNIT/ML CARTRIDGE SQ SCH ×3 (09:01→18:00)
[2021-07-19] MEDS: CITRIC ACID/SODIUM CITRATE (BICITRA)15 ML UDC PO SCH ×5 (09:14→21:16)
[2021-07-19] MEDS: CLOPIDOGREL BISULFATE 75 MG TABLET PO SCH (09:14)
[2021-07-19] MEDS: FINASTERIDE (5 MG) 5 MG TABLET PO SCH (09:14)
[2021-07-19] MEDS: ASPIRIN EC 325 MG TABLET.DR PO SCH (09:15)
[2021-07-19] MEDS: INSULIN GLARGINE, 100 UNIT/ML CARTRIDGE SQ SCH (10:21)
[2021-07-19] MEDS: SOD FERRIC GLUC 125 MG in IV NS 0.9% 100 ML IV SCH ×2 (14:18→16:39)
--- NOTE | 2021-07-19 14:35 | NUR ---
RN NOTE Received call from Brittany of lab for a critical value: Troponin level is 4.2. Dr Mosley notified, waiting for further orders.
--- NOTE | 2021-07-19 17:00 | NUR ---
RN NOTE Dr. Caro ordered Heparin drip. See chart for details.
[2021-07-19] MEDS ORDERED: HEPARIN SODIUM, PORCINE 5000 UNITS/1 ML VIAL IVF ONE (17:30)
--- NOTE | 2021-07-19 18:00 | NUR ---
RN NOTE Patient BS is 112, scheduled Insulin Aspart 6 units held. Patient has been refusing to eat.
[2021-07-19] MEDS: HEPARIN INFUSION/D5W 500 ML IV PRN (18:14)
[2021-07-19 18:22] LABS: ABG BASE EXCESS -6.1 mmol/L; ABG OXYGEN SATURATION 96.8 % (92.0-98.5); ABG PCO2 32.1 mmHg (35.0-45.0); ABG PH 7.376 (7.350-7.450); ABG PO2 98.7 mmHg (75.0-100.0); AaDO2 91.9 mmHg; COHb 0.1 % (0.5-1.5); O2Hb 96.7 % (94.0-97.0); SITE, ABG Left Radial; VENT MODE, BG 3 L NC
[2021-07-19 18:38] LABS: BASOPHILS # (AUTO) 0.1 K/uL (0.0-0.2); BASOPHILS % (AUTO) 0.4 % (0.0-2.0); EOSINOPHILS % (AUTO) 0.9 % (0.0-6.0); HEMATOCRIT 24 % (39-51); HEMOGLOBIN 7.6 g/dL (13.5-17.5); LYMPHOCYTES # (AUTO) 1.3 K/uL (0.8-4.8); LYMPHOCYTES % (AUTO) 7.6 % (20.0-44.0); MEAN CORPUSCULAR HGB CONC 32 g/dl (31.0-36.0); MEAN CORPUSCULAR VOLUME 88 fL (80-96); MONOCYTES # (AUTO) 1.8 K/uL (0.1-1.30); MONOCYTES % (AUTO) 10.2 % (2.0-12.0); NEUTROPHILS % (AUTO) 80.9 % (43.0-81.0); PLATELET COUNT (AUTO) 285 K/uL (150-450); RED BLOOD CELL COUNT(AUTO) 2.76 MIL/uL (4.5-6.0); WHITE BLOOD COUNT (AUTO) 17.3 K/uL (4.3-11.0)
--- NOTE | 2021-07-19 19:04 | NUR ---
LITERACY SPECIALIST CLOSING NOTE Patient in bed, asleep. A/O x 2-3, easily agitated. On O2 at 3 LPM, breathing evenly and unlabored. Iv access on ROBERT midline #18G infusing Heparin at 1200 unit/hr. Keating catheter in place, draining to a yellow colored urine with an output of 600 cc. Safety precautions in place: bed in low, locked position; siderails up x 2; call light within reach. Will endorse to shift leader nurse for CATERINA. Addendum: 07/19/21 at 1921 by KITA ZEPEDA RN ADD: On tele monitoring showing Sinus tachycardia with PAC, HR 111.
--- NOTE | 2021-07-19 19:56 | NUR ---
ARRANGER ASSEMBLER OPENING NOTES: RECEIVED PATIENT SLEEP IN BED COMFORTABLY AROUSABLE TO VERBAL STIMULI, BED IN LOW POSITION, CALL LIGHTS WITHIN REACH, NO COMPLAIN OF PAIN AND DISCOMFORT AT THIS TIME, PATIENT ON TELE MONITORING AST-107 WITH PAC NO SYMPTOMS WAS OBSERVE, PATIENT ON NC AT 1LPM SATURATING AT 100 PERCENT, 45 DEG HOB , PATIENT ON HERNANDEZ CATHETER WITH 100C URINE OUTPUT CLEAR YELLOW, WITH 1:1 SITTER , PATIENT KEPT CLEAN AND DRY, ALL NEEDS MET, WILL CONTINUE TO MONITOR.
[2021-07-19 20:00] VITALS: BP 128/73
[2021-07-19] MEDS: ALBUTEROL HALF STRENGTH 1.25 MG/3 ML VIAL.NEB NEB PRN (20:24)
[2021-07-19] MEDS: TAMSULOSIN 0.4 MG CAP.SR.24H PO SCH (21:16)
[2021-07-19 21:32] VITALS: BP 128/73
--- NOTE | 2021-07-19 22:19 | NUR ---
RN NOTES: BLOOD SUGAR-113; NO INSULIN GIVEN OUT OF PARAMETER
[2021-07-20] VITALS (49 sets, daily range): BP systolic 70–154; BP diastolic 30–111
[2021-07-20] MEDS ORDERED: LORAZEPAM INJ 2 MG/ML VIAL IV PRN (01:30)
--- NOTE | 2021-07-20 01:45 | NUR ---
NAILING MACHINE OPERATOR AUTOMATIC NOTES: PATIENT WAS OBSERVED RESTLESS, DISORIENTED, SCREAMING AND HAVING SHORTNESS OF BREATH V/S ARE BP-107/78 HR-123, PATIENT IS NOT COMPLAINING OF ANY PAIN, WITH FLUCTUATING HR RANGING FROM 117- 136, ON NASAL CANNULA AT 2LPM FLUCTUATING FROM 88-99 PERCENT, NOTIFY DR GAMEZ AND CAME TO CHECK PATIENT ORDERED MORPHINE SULFATE 2 MG ONE TIME, STAT EKG, STAT KUB AND STAT TROPONIN NOTED AND CARRIED OUT, ALSO ORDERED DILTIAZEM 10MG IVP ONE TIME AND MONITOR PATIENT V/S EVERY 10 MIN Q1H, PATIENT WAS PLACE ON BILATERAL SOFT RESTRAINT DUE TO COMBATIVE / AGITATIVE BEHAVIOR AND POSSIBLE PULL OUT OF IV LINE, PATIENT ONGOING MONITORING,
[2021-07-20 01:55] LABS: ABG BASE EXCESS -7.2 mmol/L; ABG OXYGEN SATURATION 75.1 % (92.0-98.5); ABG PCO2 36.8 mmHg (35.0-45.0); ABG PH 7.314 (7.350-7.450); ABG PO2 44.4 mmHg (75.0-100.0); AaDO2 140.7 mmHg; COHb 0.1 % (0.5-1.5); MetHb 0.1 % (0.0-1.5); O2Hb 74.9 % (94.0-97.0); SITE, ABG Left Radial
[2021-07-20] MEDS ORDERED: MORPHINE SULFATE INJ 2 MG/ML DISP.SYRIN IV ONE (02:00)
--- NOTE | 2021-07-20 02:00 | NUR ---
RN NOTES: RECEIVED PTT RESULT AT 0155 PTT-110 PER PROTOCOL TO STOP INFUSION FOR 1 HOUR AND READJUST HEPARIN DRIP 900 THEN PTT LAB DRAWN 6 HOURS AFTER RESUMPTION
[2021-07-20] MEDS: HALOPERIDOL LACTATE INJ 5 MG/ML VIAL IM ONE ×2 (02:30→04:28)
[2021-07-20] MEDS ORDERED: MORPHINE SULFATE INJ 2 MG/ML DISP.SYRIN IV PRN (02:30)
[2021-07-20] MEDS ORDERED: DILTIAZEM HCL 50 MG IV IV ONE (02:30)
[2021-07-20] MEDS ORDERED: DILTIAZEM HCL 25 MG IV ONE (02:49)
[2021-07-20] MEDS: HEPARIN INFUSION/D5W 500 ML IV PRN (02:55)
--- NOTE | 2021-07-20 03:10 | NUR ---
RN NOTES RESUME HEPARIN DRIP AT 0255 AT 900UNITS/HR PER ADJUSTED PROTOCOL, NO BLEEDING WAS OBSERVED, PATIENT STARTED TO CALM DOWN AT THIS TIME, NO BLEEDING WAS OBSERVED, WILL CONTINUE TO MONITOR.
--- NOTE | 2021-07-20 04:10 | NUR ---
RN NOTES: RECEIVED A CALL FROM LABORATORY (COURTNEY FOR TROPONIN RESULT AT 8.911 PREVIOUS WAS 4.[address] GAMEZ AWAITING FOR REPLY
--- NOTE | 2021-07-20 04:56 | NUR ---
RN NOTES: HECTOR GAMEZ REPLY WITH ORDER TO GIVE MORPHINE 2MG PRN PATIENT CLARIFY THAT MORPHINE NEXT DOSE IS AT 0557, HECTOR GAMEZ ORDER TO GIVE ANOTHER DOSE NOW NOTED AND CARRY OUT.
[2021-07-20 06:41] LABS: BASOPHILS % (AUTO) 0.1 % (0.0-2.0); HEMATOCRIT 23 % (39-51); HEMOGLOBIN 7.3 g/dL (13.5-17.5); LYMPHOCYTES # (AUTO) 0.9 K/uL (0.8-4.8); LYMPHOCYTES % (AUTO) 5.4 % (20.0-44.0); MEAN CORPUSCULAR HGB CONC 32 g/dl (31.0-36.0); MEAN CORPUSCULAR VOLUME 89 fL (80-96); MONOCYTES # (AUTO) 1.6 K/uL (0.1-1.30); MONOCYTES % (AUTO) 9.4 % (2.0-12.0); NEUTROPHILS # (AUTO) 14.2 K/uL (1.8-8.9); NEUTROPHILS % (AUTO) 85.1 % (43.0-81.0); PLATELET COUNT (AUTO) 248 K/uL (150-450); RED BLOOD CELL COUNT(AUTO) 2.56 MIL/uL (4.5-6.0); WHITE BLOOD COUNT (AUTO) 16.7 K/uL (4.3-11.0)
[2021-07-20] MEDS: INSULIN REGULAR, HUMAN 100 UNIT/ML 3 ML VIAL SQ PRN ×3 (06:57→17:44)
[2021-07-20 07:11] LABS: ALANINE AMINOTRANSFERASE 178 U/L (12-78); ALKALINE PHOSPHATASE 83 U/L (46-116); ASPARTATE AMINOTRANSFERASE 175 U/L (15-37); BILIRUBIN,TOTAL 0.7 mg/dL (0.2-1.0); CALCIUM, SERUM 8.2 mg/dL (8.5-10.1); CARBON DIOXIDE 18 mmol/L (21-32); CHLORIDE 109 mmol/L (98-107); GLUCOSE 219 mg/dL (74-106); MAGNESIUM 2.9 mg/dL (1.8-2.4); PHOSPHORUS 5.7 mg/dL (2.5-4.9); POTASSIUM 5.1 mmol/L (3.5-5.1); SODIUM SERUM 143 mmol/L (136-145); TOTAL PROTEIN, SERUM 6.9 g/dL (6.4-8.2)
[2021-07-20 07:18] LABS: UREA NITROGEN, BLOOD 115 mg/dL (7-18)
[2021-07-20] MEDS: BLOOD SUGAR DIAGNOSTIC 1 EACH STRIP VI SCH ×3 (07:28→17:08)
--- NOTE | 2021-07-20 07:29 | NUR ---
RN NOTES: HALDOL NOT GIVEN PER HOSPITALIST PRIORITY WAS TO ADMINISTER MORPHINE NOTED AND CARRY OUT.
--- NOTE | 2021-07-20 07:29 | NUR ---
RN TRANSFER OPENING NOTES RECEIVED PATIENT AWAKE IN BED IN NO ACUTE SIGNS OF DISTRESS. 1:1 SITTER AT BEDSIDE. A/O X 2. VERBALLY RESPONSIVE, CALMED BUT CONFUSED AT THIS TIME. B/L SOFT WRIST RESTRAINTS IN PLACED, GOOD CIRCULATION NOTED. ON 02 VIA N/C AT 2LPM, TOLERATING WELL, BREATHING NON-LABORED. TELE MONITOR READING CURRENTLY SHOWING NSR, HR ON THE 90'S, NO C/O CARDIAC DISTRESS VOICED AT THIS TIME. HEPARIN DRIP AT 900 UNITS/HR ( 18ML/HR) INFUSING WELL TO ROBERT MIDLINE. HERNANDEZ IN PLACE WITH SLIGHTLY CLOUDY YELLOW URINE OUTPUT NOTED. SAFETY PRECAUTIONS IN PLACED: BED IN LOWEST LOCKED POSITION, SIDE RAILS UP X 2, HOB KEPT ELEVATED, BED ALARM ON AND CALL LIGHT WITHIN EASY REACH. WILL CONTINUE TO MONITOR PT ACCORDINGLY.
--- NOTE | 2021-07-20 07:31 | NUR ---
TEL RN CLOSING NOTES: PATIENT SLEEP COMFORTABLY, AROUSABLE TO VERBAL STIMULI, BED IN LOW POSITION, CALL LIGHTS WITHIN REACH, PATIENT ON TELE MONITORING ST-105 WITH PAC ON ON O2 INHALATION AT 2LPM SATURATING WELL., WITH ROBERT MIDLINE WITH ONGOING HEPARIN DRIP AT 900UNITS/HR INFUSING WELL, NO BLEEDING WAS OBSERVED, PATIENT ON KUB WITH PENDING RESULT, ENDORSE TO INCOMING NURSE ON HERNANDEZ CATHETER WITH 800 URINE OUTOUT, V/S MONITORED, PATIENT ON BILATERAL RESTRAIN TO PREVENT FROM PULLING OF IV LINE, KEPT CLEAN ANDD DRY, ALL NEEDS MET ENDORSE TO INCOMING SHIFT.
[2021-07-20] MEDS: INSULIN ASPART/LISPRO 100 UNIT/ML CARTRIDGE SQ SCH ×3 (08:37→17:37)
[2021-07-20] MEDS: ASPIRIN EC 325 MG TABLET.DR PO SCH (08:38)
[2021-07-20] MEDS: INSULIN GLARGINE, 100 UNIT/ML CARTRIDGE SQ SCH (08:38)
[2021-07-20] MEDS: FINASTERIDE (5 MG) 5 MG TABLET PO SCH (08:38)
[2021-07-20] MEDS: CLOPIDOGREL BISULFATE 75 MG TABLET PO SCH (08:38)
[2021-07-20] MEDS: CITRIC ACID/SODIUM CITRATE (BICITRA)15 ML UDC PO SCH ×3 (08:38→17:00)
--- NOTE | 2021-07-20 09:13 | NUR ---
RN NOTES PT NOTED WITH CRITICAL HIGH TROPONIN 7.187 AND UNCONTROLLED A-FIB WITH HR FLUCTUATING FROM 145-171, PT IS ALERT BUT RESTLESS AND CONFUSED. DR ARTEAGA MADE AWARE WITH ORDER TO INFUSE AMIODARONE DRIP AND PHARMACY TO DOSE DRIP. WILL TRANSFER PT TO [facility] OR ICU FOR THE DRIP.
--- NOTE | 2021-07-20 09:50 | NUR ---
RN NOTES PT TRANSFERRED TO ICU RM 257 PER ACLS PROTOCOL. BEDSIDE REPORT GIVEN TO TORO LOW RN.
[2021-07-20 09:54] LABS: ABG BASE EXCESS -10.2 mmol/L; ABG OXYGEN SATURATION 95.7 % (92.0-98.5); ABG PCO2 25.8 mmHg (35.0-45.0); ABG PH 7.357 (7.350-7.450); ABG PO2 88.5 mmHg (75.0-100.0); AaDO2 109.5 mmHg; COHb 0.4 % (0.5-1.5); MetHb 0.3 % (0.0-1.5); SITE, ABG Right Brachial; VENT MODE, BG NASAL CANNULA
[2021-07-20] MEDS ORDERED: AMIODARONE 150 MG in IV D5W 100 ML IV ONE (10:00)
[2021-07-20] MEDS ORDERED: IV D5/ 0.9% NACL 1,000 ML IV PRN (11:00)
--- NOTE | 2021-07-20 11:00 | NUR ---
EXHIBIT CLEANER PATIENT TRANSFERRED TO ICU. PATIENT ON 2L O2 NC AT THIS TIME WITH NO SIGNS OF LABORED BREATHING, SATURATING AT 100%. UNCONTROLLED AFIB ON THE MONITOR, HR 165. WILL CONTINUE TO MONITOR.
[2021-07-20] MEDS: AMIODARONE 450 MG in IV D5W 241 ML IV PRN ×2 (11:38→20:16)
--- NOTE | 2021-07-20 11:58 | NUR ---
BOTTLED BEVERAGE INSPECTOR AMIODARONE LOAD COMPLETED, BLOOD PRESSURE 103/62. PATIENT TOLERATED WELL. WILL CONTINUE TO MONITOR.
--- NOTE | 2021-07-20 11:59 | NUR ---
RENAL DIALYSIS TECHNICIAN PATIENT ON AMIODARONE DRIP AT 1MG/MIN. BLOOD PRESSURE 107/50, HR 148, UNCONTROLLED AFIB. PATIENT TOLERATING MEDICATION WELL AT THIS TIME.
[2021-07-20] MEDS: SOD FERRIC GLUC 125 MG in IV NS 0.9% 100 ML IV SCH (14:00)
--- NOTE | 2021-07-20 14:15 | NUR ---
RT Code blue was called at 1354, pt was in cardiac arrest when arrived by bedside. CPR was already being done by RN. Pt was intubated with 7.5 ET tube secured at 24cm at the lip line. Positive CO2 color change noted on CO2 indicator, equal bilateral breath sounds and chest rise noted. ROSC was achieved and pt was placed on mechanical ventilation with noted settings. Vent is plugged into red outlet and alarms are set and audible. Addendum: 07/20/21 at 1437 by ALEXIA VASQUEZ RT Amended: Links added.
[2021-07-20] MEDS ORDERED: PROPOFOL 100 ML IV PRN ×2 (14:30→16:00)
[2021-07-20] MEDS ORDERED: EPINEPHRINE (1:10,000) SYRINGE 1 MG/10 ML DISP.SYRIN IVP ONE ×2 (14:32→15:43)
[2021-07-20] MEDS ORDERED: SODIUM BICARBONATE SYR 50 MEQ/50 ML DISP.SYRIN IV ONE ×2 (14:32→15:44)
[2021-07-20] MEDS ORDERED: CALCIUM CHLORIDE 1,000 MG/10 ML DISP.SYRIN IV ONE (14:32)
[2021-07-20] MEDS ORDERED: NOREPINEPHRINE 8 MG in IV NS 0.9% 242 ML IV PRN (15:30)
[2021-07-20] MEDS: EPINEPHRINE (1:1000) 10 MG in IV NS 0.9% 240 ML IV PRN ×3 (15:46→23:50)
[2021-07-20 16:00] LABS: ABG BASE EXCESS -18.5 mmol/L; ABG OXYGEN SATURATION 91.1 % (92.0-98.5); ABG PCO2 25.5 mmHg (35.0-45.0); ABG PH 7.152 (7.350-7.450); ABG PO2 82.5 mmHg (75.0-100.0); MetHb 0.2 % (0.0-1.5); O2Hb 90.9 % (94.0-97.0); SITE, ABG A-Line
[2021-07-20] MEDS ORDERED: EPINEPHRINE (1:1000) 10 MG in IV NS 0.9% 240 ML IV PRN (16:00)
[2021-07-20] MEDS ORDERED: Sodium Bicarbonate 150 MEQ in IV D5W 1,000 ML IV PRN ×2 (16:00→21:30)
[2021-07-20] MEDS: NOREPINEPHRINE 8 MG in IV NS 0.9% 242 ML IV PRN ×2 (16:02→23:45)
--- NOTE | 2021-07-20 16:16 | NUR ---
HOUSE PAINTER PATIENT LOSS CONSCIOUSNESS AT 1354, WITH GRADUALLY DROPPING HEART RATE AND BP. CODE BLUE CALLED, CPR INITIATED IMMEDIATELY. PATIENT INTUBATED BY RT. ROSC WAS ACHIEVED. PATIENT PLACED ON LEVOPHED AND EPINEPHRINE DRIP TO MAINTAIN BLOOD PRESSURE. A LINE IN PLACE FOR MONITORING, PLACED BY ZAHRAA NAVA DURING CODE. BLOOD PRESSURE 129/46 AND HR 107 AT THIS TIME. AMIODARONE DRIP STILL RUNNING. WILL CONTINUE TO MONITOR.
[2021-07-20] MEDS ORDERED: ROCURONIUM BROMIDE 50 MG/5 ML IV ONE (16:45)
[2021-07-20] MEDS ORDERED: PROPOFOL 200 MG/20 ML VIAL IV ONE (16:45)
[2021-07-20] MEDS ORDERED: PHENYLEPHRINE HCL IN 0.9% NACL 50 MG in PREMIX 1 EA IV PRN (17:00)
--- NOTE | 2021-07-20 17:07 | NUR ---
ENDOCRINOLOGY NURSE PATIENT'S BLOOD PRESSURE AND HEART RATE REMAIN STABLE AT THIS TIME. WILL CONTINUE TO MONITOR.
--- NOTE | 2021-07-20 17:11 | NUR ---
AVAYA ENGINEER PATIENT'S AMIODARONE DRIP OF 1MG/MIN COMPLETED. PATIENT NOW ON 0.5MG/MIN. BLOOD PRESSURE AND HEART RATE STABLE AT THIS TIME. WILL CONTINUE TO MONITOR.
[2021-07-20 17:28] LABS: BASOPHILS % (AUTO) 0.2 % (0.0-2.0); EOSINOPHILS % (AUTO) 0.1 % (0.0-6.0); HEMATOCRIT 24 % (39-51); HEMOGLOBIN 7.2 g/dL (13.5-17.5); LYMPHOCYTES % (AUTO) 4.5 % (20.0-44.0); MEAN CORPUSCULAR HGB CONC 30 g/dl (31.0-36.0); MEAN CORPUSCULAR VOLUME 95 fL (80-96); MONOCYTES # (AUTO) 2.7 K/uL (0.1-1.30); MONOCYTES % (AUTO) 12.6 % (2.0-12.0); NEUTROPHILS # (AUTO) 17.9 K/uL (1.8-8.9); NEUTROPHILS % (AUTO) 82.6 % (43.0-81.0); PLATELET COUNT (AUTO) 300 K/uL (150-450); RED BLOOD CELL COUNT(AUTO) 2.55 MIL/uL (4.5-6.0); WHITE BLOOD COUNT (AUTO) 21.6 K/uL (4.3-11.0)
[2021-07-20 17:44] LABS: CALCIUM, SERUM 9.4 mg/dL (8.5-10.1); CHLORIDE 109 mmol/L (98-107); CREATININE 4.1 mg/dL (0.6-1.3); GLUCOSE 304 mg/dL (74-106); POTASSIUM 4.6 mmol/L (3.5-5.1); SODIUM SERUM 151 mmol/L (136-145)
--- NOTE | 2021-07-20 17:44 | NUR ---
PSYCHOLOGY TEACHER BLOOD SUGAR 242. INSULIN NOVOLOG ADMINISTERED, REGULAR INSULIN WITHHELD DUE TO PATIENT'S CURRENT CONDITION. PATIENT WILL NOT BE EATING DUE TO INTUBATION. WILL CONTINUE TO MONITOR.
[2021-07-20 17:49] LABS: CARBON DIOXIDE 10 mmol/L (21-32); UREA NITROGEN, BLOOD 123 mg/dL (7-18)
[2021-07-20 17:52] LABS: LYMPHOCYTES % (MANUAL) 8 % (16-48); MONOCYTES % (MANUAL) 11 % (0-11.0); NEUTROPHILS % (MANUAL) 81 (42-76)
[2021-07-20 18:13] LABS: ALANINE AMINOTRANSFERASE 1290 U/L (12-78); ASPARTATE AMINOTRANSFERASE 1693 U/L (15-37)
[2021-07-20 18:17] LABS: ALKALINE PHOSPHATASE 85 U/L (46-116); BILIRUBIN,TOTAL 1.4 mg/dL (0.2-1.0)
[2021-07-20 18:18] LABS: ALBUMIN 2.7 g/dL (3.4-5.0); MAGNESIUM 3.1 mg/dL (1.8-2.4); TOTAL PROTEIN, SERUM 6.5 g/dL (6.4-8.2)
--- NOTE | 2021-07-20 19:30 | NUR ---
IT TRAINEE RCD PT S/P CARDIOPULMONARY ARREST. PT IS SEDATED ON PROPOFOL AT 5 MCG/KG/MIN. AFIB ON MONITOR W/AMIODARONE AT 0.5 MG/MIN. INTUBATED W/VENT SETTINGS AC 24 550 100% +5. PT TEMP 94 WARMING MEASURES INITIATED. HERNANDEZ CATHETER WITH MANOJ CLOUDY URINE. BRUSING NOTED TO ABDOMEN. PT IS ON LEVOPHED WITH ORDER TO TITRATE OFF AND BEGIN ELYSE.
--- NOTE | 2021-07-20 19:30 | NUR ---
GAS CHECK PAD MAKER CLOSING NOTE PATIENT REMAINS IN BED. PATIENT INTUBATED, WITH NO SIGNS OF LABORED BREATHING AT THIS TIME AND SATURATING 96%. BLOOD PRESSURE AND HEART RATE STABLE ON VASOPRESSORS. BILATERAL SOFT WRIST RESTRAINS IN PLACE, SKIN WARM AND INTACT. HERNANDEZ CATHETER IN PLACE, PATENT AND DRAINING URINE. RIGHT UA MIDLINE, RIGHT AC 20G AND LEFT AC 20G IV IN PLACE, PATENT WITH NO SIGNS OF INFILTRATION. BED LOCKED AND IN LOWEST POSITION, CALL LIGHT WITHIN REACH, 3 SIDE RAILS UP. REPORT ENDORSED TO PICK UP DRIVER NURSE.
--- NOTE | 2021-07-20 19:30 | NUR ---
MEDICAL SPECIALIST RESTRAINTS REMOVED PT IS NOT RESPOSIVE TO ANY STIMULI. PROPOROL AT 5 MCG/KG/MIN
--- NOTE | 2021-07-20 20:00 | NUR ---
ARTIFACTS CONSERVATOR UPDATED PTS SON ELTON ON PT CONDITION WISHED FOR PT TO BE DNR/DNI; CONSENTED TO PICC LINE
--- NOTE | 2021-07-20 20:00 | NUR ---
MANAGER PROGRESSIVE CARERUG TOUCH UP PAINTER RATTLING MACHINE TENDER DARIA TALKED TO FAMILY, UPDATED PT'S CONDITION & PROGNOSIS. NEXT OF KIN SON ELTON PICKERING /PHONE [phone]/ MADE DECISION TO PUT PT ON DNR CODE. NHI HUSTON RN CONFIRMED DNR CODE. FRANCO YAN NP WAS NOTIFIED ANY AGREED TO CHANGE CODE STATUS FROM FULL TO DNR.
[2021-07-20] MEDS ORDERED: DEXTROSE 50%-WATER 50 ML DISP.SYRIN IV PRN (20:30)
[2021-07-20] MEDS ORDERED: INSULIN REGULAR, HUMAN 100 UNIT/ML 3 ML VIAL SQ PRN (20:30)
[2021-07-20] MEDS ORDERED: ACETAMINOPHEN 650 MG/SUPP.RECT RC PRN (20:30)
[2021-07-20] MEDS ORDERED: HEPARIN SODIUM, PORCINE 5000 UNITS/1 ML VIAL SQ SCH (21:00)
[2021-07-20] MEDS: PHENYLEPHRINE 100 MG in IV NS 0.9% 240 ML IV PRN (23:15)
[2021-07-20] MEDS ORDERED: NOREPINEPHRINE 8MG/250ML RTU 250 ML IV ONE (23:36)
[2021-07-21] VITALS (16 sets, daily range): BP systolic 16–127; BP diastolic 13–51
[2021-07-21] MEDS ORDERED: BLOOD SUGAR DIAGNOSTIC 1 EACH STRIP IN SCH
[2021-07-21] MEDS ORDERED: PHENYLEPHRINE 10 MG/ML VIAL ONE (00:10)
[2021-07-21] MEDS ORDERED: EPINEPHRINE (1:1000) 1 MG/ML AMPUL ONE ×2 (00:20→00:24)
[2021-07-21] MEDS ORDERED: EPINEPHRINE (1:10,000) SYRINGE 1 MG/10 ML DISP.SYRIN ONE ×2 (00:29→00:32)
[2021-07-21] MEDS: EPINEPHRINE (1:1000) 10 MG in IV NS 0.9% 240 ML IV PRN (01:30)
[2021-07-21] MEDS: NOREPINEPHRINE 8 MG in IV NS 0.9% 242 ML IV PRN (01:30)
[2021-07-21] MEDS ORDERED: NOREPINEPHRINE 8MG/250ML RTU 250 ML IV ONE (01:53)
[2021-07-21] MEDS: PHENYLEPHRINE 100 MG in IV NS 0.9% 240 ML IV PRN (01:53)
--- NOTE | 2021-07-21 02:28 | NUR ---
INSPECTOR FINAL ASSEMBLY CONVEYOR LINE PT NOTED TO BE MASSIMO ON MONITOR OKAY TO HOLD AMIO AND STOP DIPRIVAN
--- NOTE | 2021-07-21 03:00 | NUR ---
RENT CONTROL OFFICE MANAGER PT AT 0248 JOANNA CONDE [phone] NOTIFIED BODY RELEASED BY [facility] S/W ADAM
== END 2021-07-21 02:48 ==
LOC: ER 14:10 → TELE 18:25 → MED 07-18 10:35 → TELE 07-19 16:53 → ICU 07-20 10:17
PROVIDERS: ADMIT Internal Medicine; ATTEND Internal Medicine
PROC: 05HY33Z Insertion of Infusion Device into Upper Vein, Percutaneous Approach (ICD-10-PCS; principal; 2021-07-20)
PROC: 0BH17EZ Insertion of Endotracheal Airway into Trachea, Via Natural or Artificial Opening (ICD-10-PCS; 2021-07-20)
PROC: 5A1935Z Respiratory Ventilation, Less than 24 Consecutive Hours (ICD-10-PCS; 2021-07-20)
PROC: 03HY32Z Insertion of Monitoring Device into Upper Artery, Percutaneous Approach (ICD-10-PCS; 2021-07-20)
PROC: 5A12012 Performance of Cardiac Output, Single, Manual (ICD-10-PCS; 2021-07-20)
DX: I13.0 Hypertensive heart and chronic kidney disease with heart failure and stage 1 through stage 4 chronic kidney disease, or unspecified chronic kidney disease (principal); I50.33 Acute on chronic diastolic (congestive) heart failure; I21.4 Non-ST elevation (NSTEMI) myocardial infarction; N17.0 Acute kidney failure with tubular necrosis; G92.8 Other toxic encephalopathy; J96.01 Acute respiratory failure with hypoxia; D68.59 Other primary thrombophilia; N18.9 Chronic kidney disease, unspecified; E87.5 Hyperkalemia; E11.22 Type 2 diabetes mellitus with diabetic chronic kidney disease; Z89.512 Acquired absence of left leg below knee; Z89.511 Acquired absence of right leg below knee; E66.01 Morbid (severe) obesity due to excess calories; Z68.38 Body mass index [BMI] 38.0-38.9, adult; R57.0 Cardiogenic shock; Z66 Do not resuscitate; E11.51 Type 2 diabetes mellitus with diabetic peripheral angiopathy without gangrene; E11.65 Type 2 diabetes mellitus with hyperglycemia; N40.0 Benign prostatic hyperplasia without lower urinary tract symptoms; Z87.891 Personal history of nicotine dependence; E88.09 Other disorders of plasma-protein metabolism, not elsewhere classified; Z91.19 Patient's noncompliance with other medical treatment and regimen; G47.33 Obstructive sleep apnea (adult) (pediatric); I46.9 Cardiac arrest, cause unspecified; D63.1 Anemia in chronic kidney disease; I25.2 Old myocardial infarction; Z20.822 Contact with and (suspected) exposure to COVID-19; R74.01 Elevation of levels of liver transaminase levels
CPT/HCPCS: 31720; 36415; 36600; 70450-TC; 71045-TC; 74018; 76856-TC; 80048-TC; 80053-TC; 80076-TC; 82803-TC; 82962-TC; 83540-TC; 83735-TC; 83880; 84100-TC; 84484-TC; 84703-TC; 85025-TC; 85610-TC; 85730-TC; 86850-TC; 87081-TC; 92950-TC; 94002-TC; 94003-TC; 94799-TC; A4216; C9803; G0378; J0171; J0282; J1630; J1644; J1815; J1940; J2060; J2270; J2370; J2704; J2916; J3490; J7030; J7040; J7050; J7060; J7070